=== PATIENT | female | born 1950 | race Caucasian/White ===

== ENCOUNTER 2016-08-02 10:44 | Emergency (ER) | payer OTHER ==
[~2016-08-02] VITALS: Ht 160 cm; Wt 101.5 kg
[~2016-08-02 10:44] MED LIST: ADVIN25/60 INH; ALBUAER INH; AMOX875T PO; ASCA500 PO; B-CO1CAP3 PO; CALC-354 PO; CHOLTAB9 PO; DIPH-437 PO; FLNIN NAE; GLUCOSAMINE CHOND PO; HYDR-5688 PO; LEVO5TAB2 PO; LSX20 PO; MOME0.1C33 TOP; OMG3 PO; RTNACR2515 TOP; SNG10 PO; VITA400C15 PO; [UNRECOGNIZED DRUG - CODE] PO; [UNRECOGNIZED DRUG - CODE] TOP
[2016-08-02 10:47] VITALS: TEMP 36.6; Ht 160 cm; Wt 101.5 kg
[2016-08-02] MEDS ORDERED: GLUCTAB18 PO (11:23)
[2016-08-02] MEDS ORDERED: NAPR220T PO (11:23)
[2016-08-02] MEDS ORDERED: VITA1TAB4 PO (11:23)
[2016-08-02] MEDS ORDERED: ADVIN50/60 INH (11:23)
--- NOTE | 2016-08-02 11:30 | EMERGENCY ROOM VISIT NOTE ---
History Report prepared by Erasmo: Evelyn Kuo Under the Supervision of: Dr. Leonarda Adair D.O. First contact with patient: 11:02 Chief Complaint: CARDIAC ASSESSMENT Stated Complaint: SOB, LEFT BREAST/SHOULDER PAIN, NAUSEA Nursing Triage Summary: reports L side cp that started last night around 2300 with some intermittent nausea and radiation to L shoulder and back, also hx of asthma denies use of inhaler or steroid recently , reports ANGUIANO at this time History of Present Illness The patient is a 66 year old female who presents to the Emergency Room with complaints of constant left sided chest pain beginning at 11pm last night. The patient notes the pain begins at her left breast and radiates to her left shoulder and down into her back. She is experiencing shortness of breath, nausea and a headache. The patient has a history of asthma but states that these symptoms as different from her usual exacerbation of asthma. She has not taken her inhaler steroids this morning. The patient denies cough or history of cardiac events. She has a history of PE in back of right knee. Source of History: patient Onset: 11pm last night Position: chest (left) Timing: constant Associated Symptoms: + SOB, + headache, + nausea Review of Systems See HPI for pertinent positives & negatives. A total of 10 systems reviewed and were otherwise negative. Past Medical & Surgical Medical Problems: (1) Asthma Family History Cancer Diabetes mellitus FHx: gallbladder disease Heart disease Hypertension Social History Smoking Status: Never Smoker Alcohol Use: occasionally Marital Status: Housing Status: lives with family Occupation Status: employed Current/Historical Medications Scheduled Acetaminophen/Diphenhydramine (Tylenol Pm), 1 TAB PO HS B-Complex Vitamins (B Complex), 1 CAP PO DAILY Calcium Carbonate-Cholecalcife (Caltrate 600+D), 1 TAB PO DAILY Fluticasone Prop/Salmeterol (Advair Diskus 500/50 60 Dose), 1 PUFF INH BID Glucosamine-Chondroitin (Osteo Bi-Flex Regular Str), 1 TAB PO DAILY Levocetirizine Dihydrochloride (Xyzal), 1 TAB PO QPM Montelukast Sod (Montelukast Sodium), 10 MG PO DAILY Naproxen Sodium (Aleve), 220 MG PO DIRECTED Vitamin E (Vitamin E), 800 UNITS PO DAILY Scheduled PRN Furosemide (Furosemide), 20 MG PO DAILY PRN for FLUID Allergies Coded Allergies: Ibuprofen (Unverified Allergy, Intermediate, SWELLING HIVES, 03/23/15) Codeine (Unverified Allergy, Mild, NAUSEA, 03/23/15) Aspartame (Unverified Allergy, Unknown, SWELLING HIVES, 03/23/15) Guaifenesin (Unverified Allergy, Unknown, SWELLING HIVES, 03/23/15) Morphine (Unverified Allergy, Unknown, VOMITING, 03/23/15) Tramadol (Verified Adverse Reaction, Mild, ULTRACET-VOMITING, 03/23/15) Lactose (Verified Adverse Reaction, Unknown, INTOLERANCE, DAIRY PRODUCTS, 03/23/15) Physical Exam Vital Signs Date Time Temp Pulse Resp B/P Pulse Ox O2 Delivery O2 Flow Rate FiO2 08/02/16 14:34 78 18 160/87 99 08/02/16 13:40 72 08/02/16 12:30 77 18 140/107 96 Room Air 08/02/16 10:56 83 08/02/16 10:47 36.6 90 22 165/97 98 Room Air Physical Exam General: Obese female who appears uncomfortable. HEENT: Head - normocephalic and atraumatic Pupils are equal, round, and reactive to light. Extraocular eye muscles are intact, and sclera are anicteric. Nose - moist nasal mucosa without discharge. Mouth - moist buccal mucosa. Oropharynx is nonerythematous and there is no tonsillar exudate or edema noted. Neck: Supple; no JVD, nuchal rigidity, cervical lymphadenopathy, or auscultated bruits. Heart: Regular rate and rhythm. There is a normal S1 and S2 with no murmurs, clicks, or gallops appreciated. Lungs: Diminished breath sounds in all lung longoria, no wheezing. Chest: No skin lesions noted. Abdomen: Soft, completely nontender, nondistended, with good bowel sounds. There are no palpable pulsatile masses or hepatosplenomegaly. There is no guarding, rigidity, or rebound noted. Back: No skin lesions noted. Extremities: No evidence of cyanosis, clubbing, or edema. There are easily palpable peripheral pulses. Skin: warm and dry with good turgor and no rashes. Medical Decision & Procedures ER Provider Diagnostic Interpretation: Radiology results as stated below per my review and the radiologist's interpretation: CHEST 2 VIEWS ROUTINE CLINICAL HISTORY: Left-sided chest pain and shortness of breath. COMPARISON STUDY: Chest radiograph 12/22/2015. FINDINGS: Lung volumes are normal. There are cholecystectomy clips. Borderline cardiomegaly is unchanged. There is no evidence of pulmonary edema. There is no consolidation. There is no pneumothorax or pleural effusion. IMPRESSION: No acute cardiopulmonary findings. Electronically signed by: Sarthak Liao M.D. 08/02/2016 12:27 PM Dictated Date/Time: 08/02/2016 12:[address] ANGIOGRAPHY OF THE CHEST, PULMONARY EMBOLUS PROTOCOL CLINICAL HISTORY: Left sided chest pain and shortness of breath. COMPARISON STUDY: Chest radiograph March 23, 2015. TECHNIQUE: Following IV administration of 81 mL of Optiray-320, helical axial images of the chest were obtained utilizing the pulmonary embolus protocol. Maximal intensity projections and sagittal and coronal reformats were viewed on an independent 3D workstation. IV contrast was administered without complication. CT DOSE: 548.78 mGy.cm FINDINGS: No pulmonary emboli are identified. The size of the heart is at the upper limits of normal. There is no significant contrast within the thoracic aorta. The caliber of the thoracic aorta is normal. There is no pericardial effusion. No pneumothorax or pleural effusion is present. There is no consolidation to suggest pneumonia. The bony thorax and upper abdomen are unremarkable. The gallbladder is surgically absent. IMPRESSION: 1. No pulmonary emboli identified. 2. No acute intrathoracic findings. Electronically signed by: Sarthak Liao M.D. 08/02/2016 1:26 PM Dictated Date/Time: 08/02/2016 1:10 PM Laboratory Results 08/02/16 11:10 Red Blood Count 4.92, Mean Corpuscular Volume 91.3, Mean Corpuscular Hemoglobin 29.7, Mean Corpuscular Hemoglobin Concent 32.5, Mean Platelet Volume 9.6, Neutrophils (%) (Auto) 45.5, Lymphocytes (%) (Auto) 36.1, Monocytes (%) (Auto) 8.3, Eosinophils (%) (Auto) 8.0, Basophils (%) (Auto) 1.9, Neutrophils # (Auto) 2.68, Lymphocytes # (Auto) 2.12, Monocytes # (Auto) 0.49, Eosinophils # (Auto) 0.47, Basophils # (Auto) 0.11 08/02/16 11:10 Test 08/02/16 11:10 White Blood Count 5.88 K/uL (4.8-10.8) Red Blood Count 4.92 M/uL (4.2-5.4) Hemoglobin 14.6 g/dL (12.0-16.0) Hematocrit 44.9 % (37-47) Mean Corpuscular Volume 91.3 fL (80-100) Mean Corpuscular Hemoglobin 29.7 pg (25-34) Mean Corpuscular Hemoglobin Concent 32.5 g/dl (32-36) Platelet Count 325 K/uL (130-400) Mean Platelet Volume 9.6 fL (7.4-10.4) Neutrophils (%) (Auto) 45.5 % Lymphocytes (%) (Auto) 36.1 % Monocytes (%) (Auto) 8.3 % Eosinophils (%) (Auto) 8.0 % Basophils (%) (Auto) 1.9 % Neutrophils # (Auto) 2.68 K/uL (1.4-6.5) Lymphocytes # (Auto) 2.12 K/uL (1.2-3.4) Monocytes # (Auto) 0.49 K/uL (0.11-0.59) Eosinophils # (Auto) 0.47 K/uL (0-0.5) Basophils # (Auto) 0.11 K/uL (0-0.2) RDW Standard Deviation 42.4 fL (36.4-46.3) RDW Coefficient of Variation 12.7 % (11.5-14.5) Immature Granulocyte % (Auto) 0.2 % Immature Granulocyte # (Auto) 0.01 K/uL (0.00-0.02) D-Dimer 560 ug/L FEU (0-500) Anion Gap 7.0 mmol/L (3-11) Est Creatinine Clear Calc Drug Dose 71.8 ml/min Estimated GFR () 78.3 Estimated GFR (Non- 67.6 BUN/Creatinine Ratio 11.8 (10-20) Calcium Level 8.8 mg/dl (8.5-10.1) Total Bilirubin 0.4 mg/dl (0.2-1) Aspartate Amino Transf (AST/SGOT) 20 U/L (15-37) Alanine Aminotransferase (ALT/SGPT) 40 U/L (12-78) Alkaline Phosphatase 78 U/L (45-117) Total Creatine Kinase 95 U/L (26-192) Creatine Kinase MB 1.5 ng/ml (0.5-3.6) Creatine Kinase MB Ratio 1.6 (0-3.0) Troponin I < 0.015 ng/ml (0-0.045) Pro-B-Type Natriuretic Peptide 6 pg/ml (0-900) Total Protein 7.7 gm/dl (6.4-8.2) Albumin 4.0 gm/dl (3.4-5.0) Globulin 3.7 gm/dl (2.5-4.0) Albumin/Globulin Ratio 1.1 (0.9-2) Laboratory results per my review. Medications Administered Medications (Trade) Dose Ordered Sig/Radha Route Start Time Stop Time Status Last Admin Dose Admin Acetaminophen (Tylenol Tab) 1,000 mg NOW STAT PO 08/02/16 12:23 08/02/16 12:24 DC 08/02/16 12:23 1,000 MG Procedure Tylenol Tab 1,000 mg PO. ECG Indication: SOB/dyspnea Rate (beats per minute): 83 Rhythm: normal sinus Findings: no acute ischemic change, no ectopy ED Course 1115: Past medical records reviewed. The patient was evaluated in room C10. A complete history and physical exam was performed. An IV lock was initiated and labs were drawn as above. A twelve-lead EKG was obtained as described above. 1221: The patient does not want Dilaudid so she can drive home. She is requesting Tylenol. The patient had chest x-ray which was unremarkable. 1223: Tylenol Tab 1,000 mg PO. 1255: The Tylenol helped improve her chest pain. She had an elevated d-dimer with a previous history of DVT. She is going to CT. 1432: The patient is feeling better and would like to go home. 1435: Upon reevaluation, the patient is hemodynamically stable. I discussed findings and results with her. She verbalized agreement of the treatment plan. She was discharged home. Medical Decision The patient is a 66 year old female who presents to the ED with chest pain. Differential diagnosis includes PE, pneumonia, asthma exacerbation, costochondritis, pleurisy. Lab findings include: no leukocytosis, stable H&H, normal glucose and renal function, negative cardiac enzymes and LFT, elevate D Dimer 560. The patient has had some discomfort in the left chest radiating into the left axilla and left shoulder since last night. She has a normal-appearing EKG and negative cardiac enzymes. The d-dimer was elevated. CT scan of the chest revealed no evidence of PE. The patient was given Tylenol here in the emergency department and had some relief of the discomfort. I've suggested that she continue to use that for her discomfort. She should limit strenuous activity over the next couple of days. I've asked her to follow -up with her PCP if the symptoms persist. She can return here to the emergency department if symptoms worsen. Impression Primary Impression: Left-sided chest wall pain Scribe Attestation The scribe's documentation has been prepared under my direction and personally reviewed by me in its entirety. I confirm that the note above accurately reflects all work, treatment, procedures, and medical decision making performed by me. Departure Information Dispostion Home / Self-Care Referrals Sinan Russo M.D. (PCP) Forms IMPORTANT VISIT INFORMATION Patient Instructions ED Chest Pain Atypical Unkn Cause, My [facility] Additional Instructions Rest. tylenol - 1 gram every 8 hours for pain Follow up with PCP if pain persists Return to the ER if symptoms worsen.
[2016-08-02 11:31] LABS: BASO % 1.9 %; BASO ABS # 0.11 K/uL (0-0.2); COMPLETE YES; HEMATOCRIT 44.9 % (37-47); IG% 0.2 %; LYMPH % 36.1 %; LYMPH ABS # 2.12 K/uL (1.2-3.4); MEAN CELL VOLUME 91.3 fL (80-100); MEAN CORPUSCULAR HEMOGLOBIN 29.7 pg (25-34); MEAN CORPUSCULAR HGB CONC 32.5 g/dl (32-36); MEAN PLATELET VOLUME 9.6 fL (7.4-10.4); MONO % 8.3 %; NEUT % 45.5 %; PLATELET COUNT 325 K/uL (130-400); RED BLOOD COUNT 4.92 M/uL (4.2-5.4); WHITE BLOOD COUNT 5.88 K/uL (4.8-10.8)
[2016-08-02 11:55] LABS: ALT/SGPT 40 U/L (12-78); AST/SGOT 20 U/L (15-37); BLOOD UREA NITROGEN 11 mg/dl (7-18); BUN/CREATININE RATIO 11.8 (10-20); CALCIUM 8.8 mg/dl (8.5-10.1); CARBON DIOXIDE 29 mmol/L (21-32); CHLORIDE 106 mmol/L (98-107); GLUCOSE 98 mg/dl (70-99); POTASSIUM 4.1 mmol/L (3.5-5.1); SODIUM 142 mmol/L (136-145)
[2016-08-02 12:00] LABS: ALB/GLOB RATIO 1.1 (0.9-2); ALKALINE PHOSPHATASE 78 U/L (45-117); CKMB/CK RATIO 1.6 (0-3.0)
[2016-08-02] MEDS ORDERED: HYDROmorphone INJ 1 MG/ML SYR IV STA (12:12)
[2016-08-02] MEDS ORDERED: ACETAMINOPHEN 500 MG TAB PO STA (12:23)
--- NOTE | 2016-08-02 12:28 | DIAGNOSTIC IMAGING REPORT ---
CHEST 2 VIEWS ROUTINE CLINICAL HISTORY: Left-sided chest pain and shortness of breath. COMPARISON STUDY: Chest radiograph 12/22/2015. FINDINGS: Lung volumes are normal. There are cholecystectomy clips. Borderline cardiomegaly is unchanged. There is no evidence of pulmonary edema. There is no consolidation. There is no pneumothorax or pleural effusion. IMPRESSION: No acute cardiopulmonary findings. Electronically signed by: Sarthak Liao M.D. 08/02/2016 12:27 PM Dictated Date/Time: 08/02/2016 12:26 PM
[2016-08-02] MEDS ORDERED: OPTIRAY 320 IV PRN (13:00)
--- NOTE | 2016-08-02 13:28 | DIAGNOSTIC IMAGING REPORT ---
CT ANGIOGRAPHY OF THE CHEST, PULMONARY EMBOLUS PROTOCOL CLINICAL HISTORY: Left sided chest pain and shortness of breath. COMPARISON STUDY: Chest radiograph March 23, 2015. TECHNIQUE: Following IV administration of 81 mL of Optiray-320, helical axial images of the chest were obtained utilizing the pulmonary embolus protocol. Maximal intensity projections and sagittal and coronal reformats were viewed on an independent 3D workstation. IV contrast was administered without complication. CT DOSE: 548.78 mGy.cm FINDINGS: No pulmonary emboli are identified. The size of the heart is at the upper limits of normal. There is no significant contrast within the thoracic aorta. The caliber of the thoracic aorta is normal. There is no pericardial effusion. No pneumothorax or pleural effusion is present. There is no consolidation to suggest pneumonia. The bony thorax and upper abdomen are unremarkable. The gallbladder is surgically absent. IMPRESSION: 1. No pulmonary emboli identified. 2. No acute intrathoracic findings. Electronically signed by: Sarthak Liao M.D. 08/02/2016 1:26 PM Dictated Date/Time: 08/02/2016 1:10 PM
[2016-08-02 14:34] VITALS: BP 160/87; PULSE 78; O2SAT 99
== END 2016-08-02 14:35 | disposition home or self-care (01) ==
LOC: C.EDB 10:45 → C.EDC 14:35
DX: R07.89 Other chest pain (principal); R06.02 Shortness of breath; R11.0 Nausea; R51 Headache; J45.909 Unspecified asthma, uncomplicated; Z86.718 Personal history of other venous thrombosis and embolism; Z83.3 Family history of diabetes mellitus; Z82.49 Family history of ischemic heart disease and other diseases of the circulatory system; E66.9 Obesity, unspecified

== ENCOUNTER → 2016-10-01 | Outpatient (CLI) | payer OTHER ==
[~2016-10-01] MED LIST changes: -ADVIN25/60 INH; +ADVIN50/60 INH; -ALBUAER INH; -AMOX875T PO; -ASCA500 PO; -CHOLTAB9 PO; -FLNIN NAE; -GLUCOSAMINE CHOND PO; +GLUCTAB18 PO; -HYDR-5688 PO; +LEVO-371 PO; -LEVO5TAB2 PO; -MOME0.1C33 TOP; +NAPR220T PO; -OMG3 PO; -RTNACR2515 TOP; +VITA1TAB4 PO; -VITA400C15 PO; -[UNRECOGNIZED DRUG - CODE] PO; -[UNRECOGNIZED DRUG - CODE] TOP
--- NOTE | 2016-10-01 12:18 | MAMMOGRAPHY REPORT ---
BILATERAL DIGITAL SCREENING MAMMOGRAM TOMOSYNTHESIS WITH CAD: 10/01/2016 CLINICAL HISTORY: Routine screening. Patient has no complaints. TECHNIQUE: Breast tomosynthesis in addition to standard 2D mammography was performed. Current study was also evaluated with a Computer Aided Detection (CAD) system. COMPARISON: Comparison is made to exams dated: 09/30/2015 mammogram, 09/19/2014 mammogram, 09/18/2013 jose g mogram, 09/12/2012 mammogram, 09/02/2011 mammogram, and 08/28/2010 mammogram - [facility] er. BREAST COMPOSITION: The tissue of both breasts is almost entirely fatty. FINDINGS: The parenchymal pattern is unchanged. No developing mass, architectural distortion or clus ter of suspicious microcalcifications is seen in either breast. IMPRESSION: ACR BI-RADS CATEGORY 2: BENIGN There is no mammographic evidence of malignancy. A 1 year screening mammogram is recommended. The pa tient will receive written notification of the results. Approximately 10% of breast cancers are not detected with mammography. A negative mammographic report should not delay biopsy if a clinically suggestive mass is present. Yokasta Zheng M.D. ay/:10/01/2016 12:06:33 Hauling Contractor: Sissy ZACARIAS(Larissa)(M), [facility] letter sent: Normal 1/2 BI-RADS Code: ACR BI-RADS Category 2: Benign
== END | disposition home or self-care (01) ==
LOC: C.MAMM 07:10
PROVIDERS: ATTEND Family Medicine
DX: Z12.31 Encounter for screening mammogram for malignant neoplasm of breast (principal)

== ENCOUNTER 2017-06-30 08:04 | Inpatient (IN) | payer OTHER ==
[2017-06-16 10:41] VITALS: Ht 157.5 cm; Wt 102.0 kg
--- NOTE | 2017-06-16 11:22 | PAT Medication Instructions ---
Service Date Jun 16, 2017. Current Home Medication List Acetaminophen (Tylenol), 1 TAB PO UD PRN for Pain Albuterol Hfa (Ventolin Hfa), 2 PUFFS INH UD PRN for ASTHMA B-Complex Vitamins (B Complex), 1 CAP PO QAM Fluticasone Prop/Salmeterol (Advair Diskus 500/50 60 Dose), 1 PUFF INH BID Fluticasone Propionate (Nasal) (Flonase Allergy Relief), 1 DOSE JEN UD Furosemide (Furosemide), 20 MG PO DAILY PRN for FLUID Glucosamine-Chondroitin (Osteo Bi-Flex Regular Str), 1 TAB PO UD Hyoscyamine Sulfate (Levsin), 0.125 MG PO UD PRN for PRN Ibuprofen (Advil), 200 MG PO UD PRN for Pain Iodoquinol-Hc (Dermazene), Unknown Dose TOP UD Levocetirizine Dihydrochloride (Xyzal), 1 TAB PO QPM Meclizine Hcl (Meclizine Hcl), 1 TAB PO UD PRN for DIZZINESS Mometasone Furoate (Elocon), 1 APPLN TOP UD PRN for PRN Montelukast Sod (Montelukast Sodium), 10 MG PO QAM Naproxen Sodium (Aleve), 220 MG PO DIRECTED PRN for Pain Oxybutynin Chloride (Ditropan), 1 TAB PO UD PRN for prn Polymyxin/Trimethoprim Oph (Polytrim Oph), 1 DROP OP UD PRN for ALLERGIES Prednisone (Prednisone), Unknown Dose PO UD Tretinoin (Tretinoin), 1 APPLN TOP UD PRN for PRN Vitamin E (Vitamin E), 800 UNITS PO QAM Medication Instructions For Your Scheduled Surgery -Contact your surgeon for instructions for: Ibuprofen (Advil), 200 MG PO UD PRN for Pain Naproxen Sodium (Aleve), 220 MG PO DIRECTED PRN for Pain -Continue as directed: Prednisone (Prednisone), Unknown Dose PO UD - Hold the following medications 2 weeks prior to surgery: Glucosamine-Chondroitin (Osteo Bi-Flex Regular Str), 1 TAB PO UD Vitamin E (Vitamin E), 800 UNITS PO QAM - Hold the following medications 24 hours prior to surgery: Furosemide (Furosemide), 20 MG PO DAILY PRN for FLUID Iodoquinol-Hc (Dermazene), Unknown Dose TOP UD Mometasone Furoate (Elocon), 1 APPLN TOP UD PRN for PRN Tretinoin (Tretinoin), 1 APPLN TOP UD PRN for PRN - Hold the following medications the morning of surgery: B-Complex Vitamins (B Complex), 1 CAP PO QAM Hyoscyamine Sulfate (Levsin), 0.125 MG PO UD PRN for PRN Oxybutynin Chloride (Ditropan), 1 TAB PO UD PRN for prn - Take the following medications the morning of surgery with a sip of water: Acetaminophen (Tylenol), 1 TAB PO UD PRN for Pain (if needed, can be taken up to four hours before surgery) Albuterol Hfa (Ventolin Hfa), 2 PUFFS INH UD PRN for ASTHMA (if needed, and bring it with you to the hospital) Fluticasone Prop/Salmeterol (Advair Diskus 500/50 60 Dose), 1 PUFF INH BID Fluticasone Propionate (Nasal) (Flonase Allergy Relief), 1 DOSE JEN UD Meclizine Hcl (Meclizine Hcl), 1 TAB PO UD PRN for DIZZINESS (if needed) Montelukast Sod (Montelukast Sodium), 10 MG PO QAM Polymyxin/Trimethoprim Oph (Polytrim Oph), 1 DROP OP UD PRN for ALLERGIES (if needed) - Take the following medications as scheduled the night before surgery: Acetaminophen (Tylenol), 1 TAB PO UD PRN for Pain (if needed) Albuterol Hfa (Ventolin Hfa), 2 PUFFS INH UD PRN for ASTHMA (if needed) Fluticasone Prop/Salmeterol (Advair Diskus 500/50 60 Dose), 1 PUFF INH BID Fluticasone Propionate (Nasal) (Flonase Allergy Relief), 1 DOSE JEN UD Hyoscyamine Sulfate (Levsin), 0.125 MG PO UD PRN (if needed) Levocetirizine Dihydrochloride (Xyzal), 1 TAB PO QPM Meclizine Hcl (Meclizine Hcl), 1 TAB PO UD PRN for DIZZINESS (if needed) Oxybutynin Chloride (Ditropan), 1 TAB PO UD PRN (if needed) Polymyxin/Trimethoprim Oph (Polytrim Oph), 1 DROP OP UD PRN for ALLERGIES (if needed) If you have any questions please call us at [phone] or [phone] or [phone]
[2017-06-16 13:20] LABS: BASO % 1.5 %; EOS % 4.8 %; EOS ABS # 0.33 K/uL (0-0.5); HEMATOCRIT 43.8 % (37-47); HEMOGLOBIN 14.4 g/dL (12.0-16.0); IG# 0.02 K/uL (0.00-0.02); LYMPH % 31.1 %; LYMPH ABS # 2.13 K/uL (1.2-3.4); MEAN CELL VOLUME 90.7 fL (80-100); MEAN CORPUSCULAR HEMOGLOBIN 29.8 pg (25-34); MEAN CORPUSCULAR HGB CONC 32.9 g/dl (32-36); MEAN PLATELET VOLUME 10.1 fL (7.4-10.4); MONO % 7.2 %; MONO ABS # 0.49 K/uL (0.11-0.59); NEUT % 55.1 %; NEUT ABS # 3.77 K/uL (1.4-6.5); PLATELET COUNT 297 K/uL (130-400); RED CELL DISTRIBUTION WIDTH CV 13.4 % (11.5-14.5); RED CELL DISTRIBUTION WIDTH SD 44.3 fL (36.4-46.3); WHITE BLOOD COUNT 6.84 K/uL (4.8-10.8)
[2017-06-16 13:28] LABS: PTT PATIENT 25.8 SECONDS (21.0-31.0)
[2017-06-16 14:03] LABS: HEMOGLOBIN A1C 6.1 % (4.5-5.6)
[2017-06-16 14:42] LABS: ALBUMIN 3.7 gm/dl (3.4-5.0); CALCIUM 9.4 mg/dl (8.5-10.1); CREATININE 0.95 mg/dl (0.60-1.20); POTASSIUM 4.2 mmol/L (3.5-5.1)
--- NOTE | 2017-06-23 14:57 | HISTORY & PHYSICAL EXAMINATION ---
DATE OF ADMISSION: 06/30/2017 CHIEF COMPLAINT: Left knee pain. HISTORY OF PRESENT ILLNESS: Ms. Moore is a 67-year-old female with a 3-4 year history of left knee pain. The patient rates her pain 8-9/10. She has pain with her daily activities. She has limited standing and walking tolerance. Pain is worse with weightbearing. The patient has had injections, NSAIDS and PT. She has failed conservative treatment and is scheduled for a left knee replacement. PAST MEDICAL HISTORY: History of DVT with , asthma. She denies diabetes or heart disease. PAST SURGICAL HISTORY: Right knee arthroscopy, left rotator cuff repair and cholecystectomy. SOCIAL HISTORY: The patient drinks 1-2 alcoholic drinks per month. She denies tobacco use. She lives in a single tarik home. She is and retired. FAMILY HISTORY: Positive for DVT in her mother. MEDICATIONS: Advair HFA 2 puffs b.i.d., oxybutynin 5 mg b.i.d., ProAir 90 mcg p.r.n., montelukast 10 mg daily, levocetirizine 5 mg, tretinoin 0.05% topical cream, Advil p.r.n., Aleve p.r.n., Tylenol p.r.n. ALLERGIES: OXYCODONE CAUSES NAUSEA AND VOMITING. REVIEW OF SYSTEMS: See HPI. Ten other systems reviewed, all negative. PHYSICAL EXAMINATION: VITAL SIGNS: Height 5 foot 2 inches, weight 224 pounds. BMI 41. GENERAL: This is a well developed, well nourished female who is alert and oriented x3. Mood and affect are appropriate. HEENT: Normocephalic, atraumatic. Mucous membranes are moist and intact. NECK: Supple without lymphadenopathy. HEART: Regular rate and rhythm without murmurs, rubs or gallops. LUNGS: Clear to auscultation without wheezes or rhonchi. ABDOMEN: Soft and nontender. Bowel sounds are equal and active. EXTREMITIES: No ecchymosis, redness or warmth. She has varus deformity. Range of motion is from 0-115 degrees with +1 laxity. She is neurovascularly intact with +5/5 strength. X-RAY EXAMINATION: AP and lateral views show joint space narrowing and osteophyte formation. IMPRESSION: Degenerative joint disease, left knee. PLAN: The patient will be admitted for a left total knee arthroplasty. We will plan on [facility] for home physical therapy upon discharge. 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 She is unsure, which coag factor is positive. She should have Xarelto for DVT prophylaxis. THE PATIENT IS ALSO ALLERGIC TO OXYCODONE and should have a Saxon prescription upon discharge.
[2017-06-30] VITALS (8 sets, daily range): BP systolic 109–164; BP diastolic 67–91; PULSE 66–90; TEMP 36.5–37.3; O2SAT 93–98
[~2017-06-30] VITALS: Ht 157.5 cm; Wt 102.0 kg
[2017-06-30] MEDS: TRANEXAMIC ACID INJ 1,000 MG x 1 Bag Preop IV SCH ×4 (06:10→10:27)
[~2017-06-30 08:04] MED LIST changes: +ACET-1256 PO; +ACETAMINOPHEN 500 MG TAB PO SCH; -CALC-354 PO; +CEFAZOLIN 2000MG IV PUSH 15 ML IV SCH; +CeleBREX 200 MG CAP PO SCH; +DEXAMETHASONE 4 MG TAB PO SCH; -DIPH-437 PO; +DTR/5 PO; +FAMOTIDINE 20 MG TAB PO SCH; +FLUT0.15 NAE; +GABAPENTIN 300 MG CAP PO SCH; +HYOS1TAB PO; +IBUP-1050 PO; +LACTATED RINGER'S 1000ML 1,000 ML IV SCH; +LACTATED RINGER'S 1000ML 500 ML IV SCH; -LEVO-371 PO; +LEVO5TAB2 PO; +MECL1TAB42 PO; +METOCLOPRAMIDE HCL 10 MG TAB PO SCH; +MOME0.1O TOP; +POLYSOL50 OP; +POVIDONE-IODINE OP SOLN 30 ML BTL ONE; +PRED10TA PO; +ROPIVACAINE 5MG/ML 30 ML 150 MG, BUPIVACAINE 0.5% MPF INJ 30 ML, EpINEphrine HCL INJ 0.... INFIL SCH; +TRANEXAMIC ACID INJ 1,000 MG x 1 Bag Intra-Op IV SCH; +TRET-55 TOP; +VNTHFA/IN INH; +[UNRECOGNIZED DRUG - CODE] TOP
--- NOTE | 2017-06-30 08:24 | History & Physical Bridge Note ---
H&P Re-Evaluation Bridge Note: I have examined the patient, reviewed the History & Physical and in the interval since the performance of the History & Physical I have noted the following changes of clinical significance: No changes noted
[2017-06-30] MEDS ORDERED: BUPIVACAINE 0.5 % 5 MG/1 ML PF 10ML VIAL ONE (08:28)
[2017-06-30] MEDS ORDERED: BUPIVACAINE 0.25% 30 ML VIAL ONE (08:29)
[2017-06-30] MEDS ORDERED: MIDAZOLAM HCL 1 MG/ML 2ML VIAL ONE (09:37)
[2017-06-30] MEDS ORDERED: ORTHO JOINT ANESTHETIC ONE (10:02)
[2017-06-30] MEDS ORDERED: BACITRACIN 50000 UNIT VIAL ONE (10:03)
[2017-06-30] MEDS ORDERED: EpHEDrine SULFATE INJ 50 MG/ML AMP IV PRN (11:00)
[2017-06-30] MEDS ORDERED: ATROPINE SULFATE 0.1 MG/ML 5ML SYR IV PRN (11:00)
[2017-06-30] MEDS ORDERED: KETAMINE HCL INJ 50 MG/ML 10 ML VIAL ONE (11:00)
[2017-06-30] MEDS ORDERED: LIDOCAINE HCL 2% 2 ML VIAL (20MG/ML) ONE (11:42)
[2017-06-30] MEDS ORDERED: PROPOFOL IV EMULSION 10 MG/ML 20 ML VIAL IV ONE (11:42)
[2017-06-30] MEDS ORDERED: ALBUTEROL HFA INHALER 8.5 GM INH ONE (11:42)
--- NOTE | 2017-06-30 11:47 | [facility] Post Operative Brief Note ---
Immediate Operative Summary Operative Date Jun 30, 2017. Pre-Operative Diagnosis Left Knee Degenerative Joint Disease Post-Operative Diagnosis Left Knee Degenerative Joint Disease Procedure(s) Performed Left Total Knee Arthroplasty Surgeon Dr Szymanski Spout Liner Surgeon(s) Donte Burger PA-C Estimated Blood Loss 10cc Findings Consistent with Post-Op Diagnosis Specimens As Per Surgeon A. Left Knee Bone and Tissue Anesthesia Type MAC Spinal Regional Complication(s) none Disposition Accompanied Pt To Recover: no Disposition: Recovery Room / PACU
[2017-06-30] MEDS ORDERED: CEFAZOLIN IV 2,000 MG in DEXTROSE 5% 50ML 50 ML IV SCH (12:30)
[2017-06-30] MEDS ORDERED: MAGNESIUM HYDROXIDE SUSP 30 ML UDC PO PRN (12:30)
[2017-06-30] MEDS ORDERED: ALUMINUM/MAGNESIUM/SIMETH (MAALOX MAX) 30 ML UDC PO PRN (12:30)
[2017-06-30] MEDS ORDERED: FLUTICASONE PROPIONATE NA SPR 16 GM BTL NAE PRN (12:30)
[2017-06-30] MEDS ORDERED: OXYBUTYNIN CHLORIDE 5 MG TAB PO PRN (12:30)
[2017-06-30] MEDS ORDERED: ONDANSETRON INJ 2 MG/ML 2 ML VIAL IV PRN (12:30)
[2017-06-30] MEDS ORDERED: ALBUTEROL HFA 8 GM INHALER INH PRN (12:30)
[2017-06-30] MEDS ORDERED: FUROSEMIDE 20 MG TAB PO PRN (12:30)
[2017-06-30] MEDS ORDERED: BISACODYL 10 MG SUPP PR PRN (12:30)
[2017-06-30] MEDS ORDERED: HYDROmorphone INJ 0.5 MG/0.5 ML SYR IV PRN (12:30)
--- NOTE | 2017-06-30 12:51 | OPERATIVE REPORT ---
DATE OF OPERATION: 06/30/2017 PREOPERATIVE DIAGNOSIS: Osteoarthritis, left knee. POSTOPERATIVE DIAGNOSIS: Osteoarthritis, left knee. PROCEDURE: Left total knee arthroplasty. SURGEON: Dr. Szymanski. INCIDENT ANALYST: LUZ MARINA Batista ANESTHESIA: Spinal. COMPLICATIONS: None. IMPLANTS USED: Femoral size 3, tibia size 2, tibial poly 13, patella size 33. DISPOSITION: Recovery room, stable. OPERATION AND FINDINGS: Following induction of spinal anesthesia, the patient's left leg was prepped and draped in the usual sterile manner. Limb was exsanguinated with an Esmarch bandage and tourniquet was inflated to 350 mmHg. A longitudinal incision was made anteriorly. Subcutaneous tissue was sharply dissected. Electrocautery was used for hemostasis. Prepatellar bursa was incised and median parapatellar incision was performed. Patella was everted and the knee was flexed. Fat pad was removed to aid in visualization and the anterior and posterior cruciate ligaments were removed. The medial face of the tibia was cleared of soft tissue first with a Bovie and a Navarro elevator. This tissue was retracted posteriorly using a blunt Hohmann. A Melendez retractor was used to expose the synovium above on the anterior aspect of the femur and this was removed down to bone. The PSI guide was placed on the distal femur and two pins were placed anteriorly and kept in position and two additional pins were placed distally and removed. The distal femoral cutting block was placed in position and the distal femoral cut was used in the +0 setting. Next, the cutting block was removed and the femoral 3 block was placed in the distal end of the femur. Care was taken to ensure appropriate external rotation and feeler gauge was used to ensure no notching would occur. The femoral block was centered on the distal femur and in the medial and lateral direction and was fixed using two bone screws. The gold pins were then removed. The oscillating saw was used to create the bone cuts and the distal femoral cutting block was removed and the reciprocating saw was used to further trim the femoral cuts as well as a deep in the area for the trochlear groove. Next, posterior condyle remnants were removed. Following this, a meniscal clamp and knife were utilized to remove the anterior portion of both medial and lateral meniscus. The proximal tibia PSI guide was placed into position and the proximal tibial cutting guide was screwed into position. The extra medullary alignment guide was utilized to ensure appropriate alignment. The proximal tibia was cut and the proximal tibial cutting block was removed and this bone fragment was removed. The appropriate guide was used to perform the notch cut on the distal femur and a lamina human resources compliance manager and a cochlear knife were utilized to finish both medial and lateral meniscectomies to remove any remnants of the posterior or anterior cruciate ligaments. Following this, the distal femoral component was impacted into position and blunt Nicole was used to sublux the tibia anteriorly. The proximal tibia was sized and a 2 tibial tray was chosen as the size to be used. This was put into position and appropriate external rotation and a double check with extramedullary alignment guide was performed. The canal for the tibial stem was prepared first with a 17 mm drill and then the punch and a mallet and the trial tibial poly was placed. A 13 was chosen the size to be used. It was brought to extension and the patella was prepared with the patellar reamer. A 33 component was chosen the size to be used. The trial component was placed and knee was taken through a full range of motion and there was found to be no lateral subluxation of the tibia. No lateral release was required. The trials were all removed. The final components were obtained and assembled. Cement was mixed. The knee was thoroughly irrigated and the ortho mix was injected about the knee joint. The final components were cemented into position. After thoroughly suctioning and drying the bone ends, all excess cement was removed. The knee was held in extension while the cement hardened. The wound was irrigated and closed over a Hemovac drain. #1 Vicryl was used to close the extensor mechanism. Subcutaneous tissues closed using 0 Dexon. Skin was closed with alvin. Sterile dressing of Adaptic, 4 x 4's, sterile Webril, and Russ was applied. The patient tolerated the procedure well. Due to the complex nature of the procedure, the entire surgery was performed with the operational assistance of LUZ MARINA Batista. The foundation assistant, under direct supervision, was involved in the actual performance of all aspects of the surgical procedure including hemostasis, tissue retraction and incision, instrument management, patient positioning, and wound closure. I attest to the content of the Intraoperative Record and any orders documented therein. Any exception s are noted below.
--- NOTE | 2017-06-30 13:22 | Anesthesiology Progress Note ---
Anesthesia Post Op Note Date & Time Jun 30, 2017 at 13:22 Vital Signs Pain Intensity: 0 Vital Signs Past 12 Hours Date Time Temp Pulse Resp B/P (MAP) Pulse Ox O2 Delivery O2 Flow Rate FiO2 06/30/17 13:15 70 16 133/68 97 Nasal Cannula 2 06/30/17 13:05 36.4 72 16 127/82 99 Nasal Cannula 2 06/30/17 12:55 72 16 103/79 96 Nasal Cannula 2 06/30/17 12:45 78 20 126/94 98 Nasal Cannula 2 06/30/17 12:35 72 18 115/59 100 Oxymask 10 06/30/17 12:28 36.1 80 16 138/74 99 Oxymask 10 06/30/17 09:24 37.3 88 20 142/90 Room Air Notes Mental Status: alert / awake / arousable, participated in evaluation Pt Amnestic to Procedure: Yes Nausea / Vomiting: adequately controlled Pain: adequately controlled Airway Patency, RR, SpO2: stable & adequate BP & HR: stable & adequate Hydration State: stable & adequate Neuraxial Anesthesia: was administered, sensory block is resolving Anesthetic Complications: no major complications apparent
--- NOTE | 2017-06-30 13:33 | DIAGNOSTIC IMAGING REPORT ---
L KNEE 1 OR 2 VIEWS ROUTINE CLINICAL HISTORY: 67 years-old Female presenting with AP/LATERAL IN PACU LEFT KNEE. TECHNIQUE: Frontal and crosstable lateral views of the left knee were obtained. COMPARISON: None. FINDINGS: Postsurgical changes of total left knee arthroplasty with patellar resurfacing. Expected intra-articular and soft tissue emphysema. A surgical drain is in place. An old screw track is noted through the tibial plateau. No acute fracture or malalignment. No hardware complication. IMPRESSION: Expected postsurgical appearance status post total left knee arthroplasty with patellar resurfacing. Electronically signed by: Cristino Segura M.D. 06/30/2017 1:32 PM Dictated Date/Time: 06/30/2017 1:31 PM
[2017-06-30] MEDS: D5W AND 1/2NSS + 20MEQ KCL 1,000 ML IV SCH ×2 (14:29→23:31)
[2017-06-30] MEDS ORDERED: NURSING VERBAL MED ORDER ONE (17:00)
[2017-06-30] MEDS: FERROUS GLUCONATE 324 MG TAB PO SCH (18:22)
[2017-06-30] MEDS: HYDROCODONE/ACETAMIN 5/325MG TAB PO PRN ×2 (18:23→23:08)
[2017-06-30] MEDS: CEFAZOLIN IV 2,000 MG in SYRINGE 0 ML IV SCH (18:23)
[2017-06-30] MEDS ORDERED: LEVOCETIRIZINE 5 MG TABLET PO SCH (21:00)
[2017-06-30] MEDS ORDERED: SENNA 8.6 MG TAB PO SCH (21:00)
[2017-06-30] MEDS ORDERED: ASPIRIN 81 MG ECTAB PO SCH (21:00)
[2017-06-30] MEDS: CeleBREX 200 MG CAP PO SCH (21:12)
[2017-06-30] MEDS: FLUTICASONE/SALMETEROL (ADVAIR) 500/50 INH 14 PUFF INH SCH (21:12)
[2017-06-30] MEDS: DOCUSATE SODIUM 100 MG CAP PO SCH (21:13)
[2017-07-01] MEDS: CEFAZOLIN IV 2,000 MG in SYRINGE 0 ML IV SCH (02:38)
[2017-07-01 02:50] VITALS: BP 130/75; PULSE 60; TEMP 36.6; O2SAT 97
[2017-07-01] MEDS: HYDROCODONE/ACETAMIN 5/325MG TAB PO PRN ×2 (02:58→06:51)
[2017-07-01 06:08] LABS: HEMATOCRIT 36.3 % (37-47); MEAN CELL VOLUME 90.3 fL (80-100); MEAN CORPUSCULAR HEMOGLOBIN 29.9 pg (25-34); MEAN CORPUSCULAR HGB CONC 33.1 g/dl (32-36); MEAN PLATELET VOLUME 9.6 fL (7.4-10.4); PLATELET COUNT 274 K/uL (130-400); RED CELL DISTRIBUTION WIDTH CV 13.5 % (11.5-14.5); RED CELL DISTRIBUTION WIDTH SD 44.8 fL (36.4-46.3); WHITE BLOOD COUNT 14.18 K/uL (4.8-10.8)
[2017-07-01 06:54] LABS: CALCIUM 8.3 mg/dl (8.5-10.1); CREATININE 0.98 mg/dl (0.60-1.20)
[2017-07-01 07:15] VITALS: BP 163/83; PULSE 74; TEMP 36.4; O2SAT 98
--- NOTE | 2017-07-01 07:32 | Orthopedic Progress Note ---
Orthopedic Progress Note Date of Service Jul 01, 2017. Subjective Post OP Day: 1 Reports: feeling well Objective N/V intact, dressing C/D/I (Hemovac in place), toes mobile Date Time Temp Pulse Resp B/P (MAP) Pulse Ox O2 Delivery O2 Flow Rate FiO2 07/01/17 02:50 36.6 60 15 130/75 (93) 97 Room Air 06/30/17 23:40 Room Air 06/30/17 22:59 36.7 66 16 109/67 (81) 94 Room Air 06/30/17 20:07 37.2 90 18 129/73 (91) 93 Room Air 06/30/17 16:32 36.8 82 18 142/83 (102) 96 Room Air 06/30/17 16:10 Room Air 06/30/17 15:33 36.8 79 18 147/82 (103) 95 Room Air 06/30/17 14:30 77 18 164/83 (110) 98 Nasal Cannula 2.0 06/30/17 14:00 79 16 154/91 (112) 97 Nasal Cannula 2.0 06/30/17 13:30 98 Nasal Cannula 2.0 06/30/17 13:30 36.5 75 18 131/77 (95) 98 Nasal Cannula 2.0 06/30/17 13:30 36.5 75 18 131/77 (95) 98 Nasal Cannula 2.0 06/30/17 13:30 Nasal Cannula 2.0 06/30/17 13:15 70 16 133/68 97 Nasal Cannula 2 06/30/17 13:05 36.4 72 16 127/82 99 Nasal Cannula 2 06/30/17 12:55 72 16 103/79 96 Nasal Cannula 2 06/30/17 12:45 78 20 126/94 98 Nasal Cannula 2 06/30/17 12:35 72 18 115/59 100 Oxymask 10 06/30/17 12:28 36.1 80 16 138/74 99 Oxymask 10 06/30/17 09:24 37.3 88 20 142/90 Room Air Laboratory Results 24 Hours: Test 07/01/17 05:39 Hematocrit 36.3 % Hemoglobin 12.0 g/dL Assessment & Plan Assessment: 67 yo female stable POD #1 s/p left TKA Plan: 1. Med management 2. DVT prophylaxis- Xarelto, SCDs 3. PT/OT 4. D/C planning- home w/ HH
[2017-07-01] MEDS ORDERED: HYDR-5688 PO (07:39)
[2017-07-01] MEDS ORDERED: XRL10 PO (07:39)
--- NOTE | 2017-07-01 07:40 | Discharge Instructions ---
Discharge Instructions Date of Service Jul 01, 2017. Admission Reason for Admission: Left Knee Osteoarthritis Discharge Discharge Diagnosis / Problem: Left knee arthritis Discharge Goals Goal(s): Decrease discomfort, Improve function Activity Recommendations Activity Limitations: as noted below Weightbearing Status: Left weightbearing (as tolerated) . Instructions / Follow-Up Instructions / Follow-Up ACTIVITY RECOMMENDATIONS: SELF CARE INSTRUCTIONS AFTER TOTAL KNEE REPLACEMENT A. You may need to continue a physical therapy program after discharge from the hospital. There are several options available to you. Your doctor will assist you in selecting the best one for you. 1. An out-patient facility 2 to 3 times a week for therapy or home therapy. 2. Continue working on all exercises taught to you in the hospital. Your goals should be to increase bending of your knee to 90 degrees and beyond and to fully straighten your knee. B. You may progress at your own pace from walking with a walker or crutches to a cane; then to no assistive devices. C. Make walking a part of your daily routine. Be up as much as comfortable with rest periods throughout the day. Rest with leg elevation is very important. Use the ice wrap frequently for the first 3-4 weeks. D. There are no restrictions on activities. 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 E. Wear the long elastic stockings (PABLITO hose) 20 hours a day for 2 weeks after surgery. They can be removed several times a day for laundering and for a bath. F. You may shower, no tub baths until cleared by your doctor. SPECIAL CARE INSTRUCTIONS: VERY IMPORTANT TO READ AND REVIEW A. There are a few signs you need to watch for after you are home. Call [facility] [place] if you notice any of the followin. Increased severe knee pain. Some pain is expected especially when you exercise. 2. Increased swelling in your leg or knee; pain or swelling of the calf muscle in either lower leg. 3. Any fluid drainage from the incision. 4. Shortness of breath or chest pain. B. Please call [facility] [place] at if you have any concerns or questions about your operation or recovery. The doctor or his nurse will return your call promptly. C. You must take antibiotics before dental work, bladder, bowel or other surgery. Your doctor will provide you with a permanent care to carry describing this precaution. IMPORTANT: * REMEMBER TO TAKE ASPIRIN, 81 MG, TWICE DAILY FOR 4 WEEKS UNLESS OTHERWISE DIRECTED. THIS IS YOUR BLOOD THINNER. * HIGH RISK PATIENTS MAY BE PRESCRIBED A STRONGER BLOOD THINNER. THIS WILL BE PROVIDED AT DISCHARGE. * CALL IF INCREASED PAIN, REDNESS, DRAINAGE OR FEVER GREATER THAT 101. * WEAR PABLITO HOSE 20 HOURS PER DAY FOR 2 WEEKS. * You have a Zipline Closure System. As noted below, this keeps your incision closed. Change the dressing daily. Keep the wound covered with a dressing as it has the potential to snag on your clothing. The Zipline will remain on for a total of 2 weeks. Do not remove it! You may shower with this on. Do not soak it; no tub baths. You will be given instructions by nursing staff at the time of discharge to care for your Zip Closure System. This devices uses plastic straps to keep your incision closed and protected throughout your recovery. If you have any questions please refer to these instructions first. [phone]. FOLLOW UP VISIT: If appointment is not already scheduled: Please call [facility] [place] to make a follow-up appointment for 2 weeks after your surgery at . Current Hospital Diet Patient's current hospital diet: Regular Diet Discharge Diet Recommended Diet: Regular Diet Procedures Procedures Performed: Left Total Knee Arthroplasty Pending Studies Studies pending at discharge: no Laboratory Results Hemoglobin A1c Test 06/16/17 11:34 Range/Units Estimated Average Glucose 128 mg/dl Hemoglobin A1c 6.1 H 4.5-5.6 % Medical Emergencies . Who to Call and When: Medical Emergencies: If at any time you feel your situation is an emergency, please call 911 immediately. . Non-Emergent Contact Non-Emergency issues call your: Surgeon Call Non-Emergent contact if: temperature is above 101.5, your pain is not controlled, wound has increased drainage, wound has increased redness . "Provider Documentation" section prepared by Richy Gamez PA-C. . [place] Drug Monitoring Program Search Results: patient reviewed within database, no issues identified
--- NOTE | 2017-07-01 08:02 | Anesthesiology Progress Note ---
Anesthesia Post Op Note Date & Time Jul 01, 2017 at 08:02 Vital Signs Pain Intensity: 5.0 Vital Signs Past 12 Hours Date Time Temp Pulse Resp B/P (MAP) Pulse Ox O2 Delivery O2 Flow Rate FiO2 07/01/17 07:15 36.4 74 16 163/83 (109) 98 Room Air 07/01/17 02:50 36.6 60 15 130/75 (93) 97 Room Air 06/30/17 23:40 Room Air 06/30/17 22:59 36.7 66 16 109/67 (81) 94 Room Air 06/30/17 20:07 37.2 90 18 129/73 (91) 93 Room Air Notes Mental Status: alert / awake / arousable, participated in evaluation Pt Amnestic to Procedure: Yes Nausea / Vomiting: adequately controlled Pain: adequately controlled Airway Patency, RR, SpO2: stable & adequate BP & HR: stable & adequate Hydration State: stable & adequate Anesthetic Complications: no major complications apparent
[2017-07-01] MEDS: FERROUS GLUCONATE 324 MG TAB PO SCH ×2 (08:31→12:36)
[2017-07-01] MEDS: DOCUSATE SODIUM 100 MG CAP PO SCH (08:32)
[2017-07-01] MEDS: CeleBREX 200 MG CAP PO SCH (08:33)
[2017-07-01] MEDS: FLUTICASONE/SALMETEROL (ADVAIR) 500/50 INH 14 PUFF INH SCH ×2 (08:33→08:34)
[2017-07-01] MEDS ORDERED: MONTELUKAST SOD 10 MG TAB PO SCH (09:00)
[2017-07-01] MEDS ORDERED: MULTIVITAMIN TAB PO SCH (09:00)
[2017-07-01] MEDS ORDERED: MONTELUKAST PO SCH (09:00)
[2017-07-01] MEDS ORDERED: RIVAROXABAN 10 MG TAB PO SCH (11:00)
[2017-07-01 11:19] VITALS: BP 131/72; PULSE 58; TEMP 36.9; O2SAT 95
[2017-07-01 12:45] VITALS: BP 131/72; PULSE 58; TEMP 36.9; O2SAT 95
== END 2017-07-01 14:05 | disposition home health service (06) | DRG 470 ==
LOC: C.ACU 08:04 → C.3E 09:30 → ENRESERV 13:02
PROC: 0SRD0J9 Replacement of Left Knee Joint with Synthetic Substitute, Cemented, Open Approach (ICD-10-PCS; principal; 2017-06-30 10:45)
DX: M17.12 Unilateral primary osteoarthritis, left knee (principal); Z68.41 Body mass index [BMI] 40.0-44.9, adult; J45.909 Unspecified asthma, uncomplicated; E66.01 Morbid (severe) obesity due to excess calories; Z86.718 Personal history of other venous thrombosis and embolism; Z98.890 Other specified postprocedural states; Z90.49 Acquired absence of other specified parts of digestive tract; Z79.899 Other long term (current) drug therapy; Z88.5 Allergy status to narcotic agent

== ENCOUNTER → 2017-10-04 | Outpatient (CLI) | payer OTHER ==
[~2017-10-04] MED LIST changes: -ACET-1256 PO; -ACETAMINOPHEN 500 MG TAB PO SCH; -CEFAZOLIN 2000MG IV PUSH 15 ML IV SCH; -CeleBREX 200 MG CAP PO SCH; -DEXAMETHASONE 4 MG TAB PO SCH; -FAMOTIDINE 20 MG TAB PO SCH; -GABAPENTIN 300 MG CAP PO SCH; +HYDR-5688 PO; -IBUP-1050 PO; -LACTATED RINGER'S 1000ML 1,000 ML IV SCH; -LACTATED RINGER'S 1000ML 500 ML IV SCH; -METOCLOPRAMIDE HCL 10 MG TAB PO SCH; -NAPR220T PO; -POVIDONE-IODINE OP SOLN 30 ML BTL ONE; -ROPIVACAINE 5MG/ML 30 ML 150 MG, BUPIVACAINE 0.5% MPF INJ 30 ML, EpINEphrine HCL INJ 0.... INFIL SCH; -TRANEXAMIC ACID INJ 1,000 MG x 1 Bag Intra-Op IV SCH
--- NOTE | 2017-10-04 16:19 | MAMMOGRAPHY REPORT ---
BILATERAL DIGITAL SCREENING MAMMOGRAM TOMOSYNTHESIS WITH CAD: 10/04/2017 CLINICAL HISTORY: Routine screening. Patient has no complaints. TECHNIQUE: The study was acquired using full field digital technology and interpreted from soft copy. Breast tomosynthesis in addition to standard 2D mammography was performed. Current study was also ev aluated with a Computer Aided Detection (CAD) system. COMPARISON: Comparison is made to exams dated: 10/01/2016 mammogram, 09/30/2015 mammogram, 09/19/2014 ma mmogram, 09/18/2013 mammogram, 09/12/2012 mammogram, and 09/02/2011 mammogram - [facility] er. BREAST COMPOSITION: The tissue of both breasts is almost entirely fatty. FINDINGS: There are minimal vascular calcifications in the breasts. A few scattered benign rodlike a nd round calcifications bilaterally. No suspicious mass, architectural distortion or cluster of micro calcifications is seen. IMPRESSION: ACR BI-RADS CATEGORY 1: NEGATIVE There is no mammographic evidence of malignancy. A 1 year screening mammogram is recommended.( [id number]) The patient will receive written notification of the results. Some breast cancers are not detected with mammography. A negative mammographic report should not keisha y biopsy if a clinically suggestive mass is present. Yokasta Zheng M.D. ay/:10/04/2017 15:33:30 Refrigerator Room Clerk: RT Aldo(R)(M)(BD), [facility] letter sent: Normal 1/2 BI-RADS Code: ACR BI-RADS Category 1: Negative
== END | disposition home or self-care (01) ==
LOC: C.MAMM 09:30
PROVIDERS: ATTEND Family Medicine
DX: Z12.31 Encounter for screening mammogram for malignant neoplasm of breast (principal)

== ENCOUNTER 2019-02-01 19:50 | Inpatient (IN) ==
[2019-02-01] MEDS ORDERED: CEFEPIME 2,000 MG/20 ML VIAL IV STA (19:57)
[2019-02-01] MEDS ORDERED: LEVOFLOXACIN/D5W 750 MG/150 ML BAG IV SCH (20:00)
[2019-02-01 20:36] LABS: Basophils # (auto) 0.01 K/uL (0-0.2); Basophils % (auto) 0.1 %; Hematocrit (blood only) 41.6 % (37-47); Hemoglobin 13.6 g/dL (12.0-16.0); Immature Granulocytes # (auto) 0.05 K/uL (0.00-0.02); Immature Granulocytes % (auto) 0.5 %; Lymphocytes # (auto) 0.71 K/uL (1.2-3.4); Lymphocytes % (auto) 6.5 %; Mean Corpuscular Hemoglobin 30.4 pg (25-34); Mean Corpuscular Hgb Conc 32.7 g/dL (32-36); Mean Corpuscular Volume 92.9 fL (80-100); Mean Platelet Volume 9.5 fL (7.4-10.4); Monocytes # (auto) 0.42 K/uL (0.11-0.59); Monocytes % (auto) 3.9 %; Neutrophils # (auto) 9.66 K/uL (1.4-6.5); Platelet Count 278 K/uL (130-400); RDW Standard Deviation 44.1 fL (36.4-46.3); Red Blood Count 4.48 M/uL (4.2-5.4); White Blood Count 10.85 K/uL (4.8-10.8)
[2019-02-01 20:52] LABS: Est GFR (African American) 71.4; Potassium 3.7 mmol/L (3.5-5.1)
[2019-02-01 20:53] LABS: Albumin Level 3.3 gm/dl (3.4-5.0); BUN Creatinine Ratio 11.8 (10-20); Calcium 9.3 mg/dl (8.5-10.1); Creatinine Clr Calc Pharmacy 64.7 ml/min; Est GFR (Non-African American) 61.6; INR 1.1 (0.9-1.1); Partial Thromboplastin Ratio 0.8; Partial Thromboplastin Time 20.8 Seconds (21.0-31.0)
[2019-02-01 20:55] LABS: Albumin Globulin Ratio 0.7 (0.9-2); Bilirubin,Total 0.3 mg/dl (0.2-1); Globulin 4.6 gm/dl (2.5-4.0); Total Protein 7.9 gm/dl (6.4-8.2)
[2019-02-01 20:56] LABS: Appearance Urine Clear (Clear); Bacteria Urine Automated Negative (Negative); Bilirubin Urine Negative (Negative); Blood Urine Negative (Negative); Color Urine Yellow; Epithelial Cell Urine Auto >30 /lpf (0-5); Glucose Urine UA Negative (Negative); Ketones Urine Negative (Negative); Leukocyte Esterase Urine Trace (Negative); Nitrite Urine Negative (Negative); Protein Urine Negative (Negative); RBC Urine Automated 0-4 /hpf (0-4); Specific Gravity Urine 1.017 (1.000-1.030); Urobilinogen Urine Negative (Negative); pH Urine 5.5 (4.5-7.5)
[2019-02-01] MEDS ORDERED: IOVERSOL 100ml IV PRN (21:07)
[2019-02-01 21:09] LABS: Renal Epithelial Cells Urine 0-5 /lpf (0-5)
--- NOTE | 2019-02-01 21:47 | CT Scan Report ---
CHEST CT WITH CONTRAST; CT abdomen and pelvis with IV contrast only CT DOSE: 1540.58 mGycm HISTORY: Acute sepsis gram neg in BC TECHNIQUE: Multiaxial CT images of the chest were performed following the IV administration of 93 cc of Optiray 320. A dose lowering technique was utilized adhering to the principles of ALARA. COMPARISON: CT abdomen pelvis 04/07/2018, CTA chest 08/02/2016 FINDINGS: CT CHEST: Unremarkable thyroid. Scattered prominent nonspecific mediastinal lymph nodes are present. No patholo gic adenopathy by CT size criteria. Heart is normal in size without pericardial effusion. Coronary ar terial calcifications are noted. There is no thoracic aortic aneurysm or dissection. Patency of the i aspen great vessels. Unopacified pulmonary artery is unremarkable. Collateral veins of the left axill a. Possible left subclavian vein stenosis. No pneumothorax, pleural effusion or focal airspace consolidation typical for pneumonia. Small right Bochdalek hernia. There are no suspicious pulmonary nodules or masses. No overt pulmonary edema. Cent ral airways appear patent. Soft tissues of the chest are unremarkable. Mild degenerative changes of t he spine. No suspicious bone lesions. Schmorl's node with remote appearing superior endplate compress ion deformity at T12. No retropulsion. CT ABDOMEN/PELVIS: No pneumatosis or pneumoperitoneum. Hepatic steatosis with mild hepatomegaly. No focal hepatic mass l esion. Cholecystectomy. Spleen, pancreas and adrenal glands appear unremarkable. Mild nonspecific kori ateral perinephric stranding. No renal or ureteral calculi or obstructive uropathy. There is equivoca l urothelial thickening of the right renal pelvis. Circumferential wall thickening of the bladder wit h partial distention. Unchanged fatty attenuating linear structure of the central uterus. No adnexal mass lesion. Calcified plaque the abdominal aorta without aneurysm. No adenopathy. No bowel obstruction or bowel wall thickening. Colonic diverticulosis. There is minimal inflammatory stranding surrounding the proximal descending colon on image 165 series 6 which is new from prior. Un remarkable appendix. Soft tissues are unremarkable. Degenerative changes of the spine, pelvis and hip s. Remote T12 compression deformity. IMPRESSION: 1. Findings suspicious for cystitis. Correlate with urinalysis. 2. Colonic diverticulosis. Minimal inflammatory stranding adjacent to the proximal descending colon, equivocal for subtle acute diverticulitis. Correlate clinically. 3. No bowel obstruction. 4. No acute intrathoracic abnormality. 5. Hepatic steatosis. 6. Additional findings as above. Electronically signed by: Charly Suarez M.D. 02/01/2019 9:45 PM
[2019-02-01] MEDS ORDERED: SODIUM CHLORIDE 0.9% 1000ML 1,000 ML IV ONE (22:18)
--- NOTE | 2019-02-01 23:00 | History & Physical Report ---
Date of Service February 01, 2019 Assessment & Plan (1) Severe sepsis: SIRS plus lactic acid elevation secondary to complicated UTI, hx urinary incontinence as per records Septicemia, gram-negative rods noted on initial blood cultures Situational hypertension asthma, better controlled with new controller medications as per patient Viral rhinosinusitis Recent diverticulitis status post Rx prediabetes as per records, recent outpatient hemoglobin A1c of 6.12 November 2018 GMF Cefepime for now, follow final blood CS IVF, follow lactic acid DC Augmentin for sinusitis as symptoms more consistent with viral URTI DVT prophylaxis. Lovenox subcu Full code History of Present Illness Chief Complaint: Abnormal blood work Primary Care Provider: Sinan Russo MD History obtained from patient, family, and records. Medical history significant for asthma, allergic rhinitis, osteoarthritis, history diverticulosis as per records, Urinary incontinence as per records, prediabetes as per records. Recent confinement June 2017 under orthopedics service for elective left knee surgery. Last month, patient noted left-sided abdominal pain. Patient prescribed Cipro Flagyl for presumptive diverticulitis. Outpatient CT abdomen pelvis showed acute epiploic appendagitis of the proximal descending colon. Cipro Flagyl later switch to Augmentin course due to patient intolerance for former medications. Abdominal discomfort resolved. 2 days history of stuffy nasal congestion, cough symptoms productive of clear sputum, severe achy headache with nausea and some vomiting. Fever, chills at home. Some bladder discomfort, patient requesting for cranberry juice. No chest pain, no S OB, no abdominal pain. This morning, patient brought to ER for evaluation. Prescribed Augmentin for sinusitis. Patient also given Decadron at the ER. Blood cultures 2 bottles noted to grow gram-negative rods. Patient requested to return to the emergency room. Patient given IV Cefepime, Levaquin at the ER. 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 Allergies Allergy/AdvReac Type Severity Reaction Status Date / Time codeine Allergy Mild NAUSEA Unverified 02/01/19 08:40 aspartame Allergy Unknown SWELLING Unverified 02/01/19 08:40 HIVES guaifenesin Allergy Unknown SWELLING Unverified 02/01/19 08:40 HIVES morphine Allergy Unknown VOMITING Unverified 02/01/19 08:40 Quinolones AdvReac Intermediate Vomiting Unverified 02/01/19 19:31 tramadol AdvReac Mild ULTRACET-VO Verified 02/01/19 08:40 MITING lactose AdvReac Unknown INTOLERANCE, Verified 02/01/19 08:40 DAIRY PRODUCTS oxycodone AdvReac Unknown n/v Verified 02/01/19 08:40 Home Medications Home Medications Medication Instructions Recorded Confirmed Type albuterol sulfate [Ventolin HFA] 2 puff INHALATION Q4H PRN 04/06/18 02/01/19 History fluticasone propionate [Flonase 2 spray INTRANASAL HS 04/06/18 02/01/19 History Allergy Relief] furosemide 20 mg PO QAM 04/06/18 02/01/19 History hydrocortisone-iodoquinol 1 applic TOPICAL TID PRN 04/06/18 02/01/19 History [Dermazene] levocetirizine 5 mg PO QAM 04/06/18 02/01/19 History mometasone [El[place]] 1 applic TOPICAL DAILY PRN 04/06/18 02/01/19 History montelukast 10 mg PO HS 04/06/18 02/01/19 History oxybutynin chloride 5 mg PO BID PRN 04/06/18 02/01/19 History vit [id number] [B 1 tab SUBLINGUAL QAM 04/06/18 02/01/19 History Complex] Bifidobacterium infantis [Align] 0 mg PO QAM 02/01/19 02/01/19 History acetaminophen [Tylenol Arthritis 650 mg PO Q12H PRN 02/01/19 02/01/19 History Pain] amoxicillin-pot clavulanate 1 tab PO BID #20 tab 02/01/19 02/01/19 Rx [Augmentin] atorvastatin 20 mg PO DAILY 02/01/19 02/01/19 History cholecalciferol (vitamin D3) 0 unit PO QAM 02/01/19 02/01/19 History [Vitamin D3] fluticasone furoate-vilanterol 1 inh INHALATION DAILY 02/01/19 02/01/19 History [Breo Ellipta] ibuprofen 200 mg PO Q6H PRN 02/01/19 02/01/19 History meclizine 0 mg PO DAILY PRN 02/01/19 02/01/19 History prednisone 10 mg PO DIRECTED PRN 02/01/19 02/01/19 History psyllium husk [Fiber (psyllium 0 g PO QAM 02/01/19 02/01/19 History husk)] Past Med/Surg History Medical History Asthma (Chronic) Surgical History No pertinent past surgical history Family History Other FHx: cancer Family history of diabetes mellitus Social History Preferred Language: Urdu Communication Ability: Effective Toolroom Attendant Required: No Beliefs That Will Affect Care: None Current Living Situation: Spouse Feels Safe at Home: Yes Smoking Status: Never smoker Hx Alcohol Use: Yes Hx Substance Use: No Review of Systems Review of Systems: As per HPI, all 10 systems reviewed, all other ROS negative Physical Exam Physical Exam: GENERAL: Comfortable, obese, pleasant, no respiratory distress SKIN: Normal color, warm HEENT: [place] palpebral conjunctivae, no ptosis, dry buccal mucosa NECK : Supple, short neck, no tenderness CHEST : CTA, no tenderness HEART : RRR, no obvious murmurs ABDOMEN: Some distention, nontender EXTREMITIES : No LE swelling/tenderness, no other conspicuous deformities noted NEUROLOGIC : Coherent, no facial asymmetry, no other gross focality Results & Data Vital Signs (Past 12 Hours) Vital Signs Temp Pulse Resp BP Pulse Ox 02/01/19 22:30 65 15 96 02/01/19 22:00 72 20 167/92 H 96 02/01/19 21:31 71 19 92 02/01/19 21:30 72 16 156/89 H 94 02/01/19 21:17 72 18 96 02/01/19 21:14 72 15 161/82 H 96 02/01/19 19:52 36.6 C 103 H 18 164/93 H 92 Laboratory Results Laboratory Results WBC 10.85 K/uL (4.8-10.8) H 02/01/19 20:22 RBC 4.48 M/uL (4.2-5.4) 02/01/19 20: Hgb 13.6 g/dL (12.0-16.0) 02/01/19 20: Hct 41.6 % (37-47) 02/01/19 20: MCV 92.9 fL (80-100) 02/01/19 20: MCH 30.4 pg (25-34) 02/01/19 20: MCHC 32.7 g/dL (32-36) 02/01/19 20: RDW Std Deviation 44.1 fL (36.4-46.3) 02/01/19 20: RDW Coeff of [place] 13.0 % (11.5-14.5) 02/01/19: Plt Count 278 K/uL (130-400) 02/01/19 20: MPV 9.5 fL (7.4-10.4) 02/01/19 20: Immature Gran % (Auto) 0.5 % 02/01/19: Neut % (Auto) 89.0 % 02/01/19 20: Lymph % (Auto) 6.5 % 02/01/19: [place] % (Auto) 3.9 % 02/01/19: Eos % (Auto) 0.0 % 02/01/19: Baso % (Auto) 0.1 % 02/01/19: Immature Gran # (Auto) 0.05 K/uL (0.00-0.02) H 02/01/19: Neut # (Auto) 9.66 K/uL (1.4-6.5) H 02/01/19 20: Lymph # (Auto) 0.71 K/uL (1.2-3.4) L 02/01/19 20: [place] # (Auto) 0.42 K/uL (0.11-0.59) 02/01/19 20: Eos # (Auto) 0.00 K/uL (0-0.5) 02/01/19 20: Baso # (Auto) 0.01 K/uL (0-0.2) 02/01/19: PT 11.0 Seconds (9.0-12.0) 11/21/19 20:22 INR 1.1 (0.9-1.1) 02/01/19 20:22 APTT 20.8 Seconds (21.0-31.0) L 02/01/19 20:22 PTT Ratio 0.8 02/01/19 20:22 Sodium 136 mmol/L (136-145) 02/01/19 20:22 Potassium 3.7 mmol/L (3.5-5.1) 02/01/19 20:22 Chloride 103 mmol/L (98-107) 02/01/19 20:22 Carbon Dioxide 25 mmol/L (21-32) 02/01/19 20:22 Anion Gap 8.0 (3-11) 02/01/19 20:22 BUN 11 mg/dl (7-18) 02/01/19 20:22 Creatinine 0.96 mg/dl (0.6-1.2) 02/01/19 20:22 Est Cr Clr Drug Dosing 64.7 ml/min 02/01/19 20:22 Est GFR ( Amer) 71.4 02/01/19 20:22 Est GFR (Non-Af Amer) 61.6 02/01/19 20:22 BUN/Creatinine Ratio 11.8 (10-20) 02/01/19 20:22 Glucose 180 mg/dl (70-99) H 02/01/19 20:22 Lactate 2.2 mmol/L (0.4-2.0) H* 02/01/19 20:22 Calcium 9.3 mg/dl (8.5-10.1) 02/01/19 20:22 Magnesium 2.3 mg/dl (1.8-2.4) 02/01/19 22:31 Total Bilirubin 0.3 mg/dl (0.2-1) 02/01/19 20:22 AST 18 U/L (15-37) 02/01/19 20:22 ALT 37 U/L (12-78) 02/01/19 20:22 Alkaline Phosphatase 83 U/L (45-117) 02/01/19 20:22 Total Protein 7.9 gm/dl (6.4-8.2) 02/01/19 20:22 Albumin 3.3 gm/dl (3.4-5.0) L 02/01/19 20:22 Globulin 4.6 gm/dl (2.5-4.0) H 02/01/19 20:22 Albumin/Globulin Ratio 0.7 (0.9-2) L 02/01/19:22 Urine Color Yellow 02/01/19 20:20 Urine Appearance Clear (Clear) 02/01/19 20:20 Urine pH 5.5 (4.5-7.5) 02/01/19 20:20 Ur Specific [place] 1.017 (1.000-1.030) 02/01/19 20:20 Urine Protein Negative (Negative) 02/01/19 20:20 Urine Glucose (UA) Negative (Negative) 02/01/19 20:20 Urine Ketones Negative (Negative) 02/01/19:20 Urine Blood Negative (Negative) 02/01/19:20 Urine Nitrite Negative (Negative) 02/01/19 20:20 Urine Bilirubin Negative (Negative) 02/01/19 20:20 Urine Urobilinogen Negative (Negative) 02/01/19 20:20 Ur Leukocyte Esterase Trace (Negative) H 02/01/19 20:20 Urine WBC (Auto) 5-10 /hpf (0-5) H 02/01/19 20:20 Urine RBC (Auto) 0-4 /hpf (0-4) 02/01/19 20:20 U Hyaline Cast (Auto) 1-5 /lpf (0-5) 02/01/19 20:20 U Epithel Cells (Auto) >30 /lpf (0-5) H 02/01/19 20:20 Urine Bacteria (Auto) Negative (Negative) 02/01/19 20:20 Ur Renal Epithelial Cell 0-5 /lpf (0-5) 02/01/19 20:[address] chest Unremarkable thyroid. Scattered prominent nonspecific mediastinal lymph nodes are present. No pathologic adenopathy by CT size criteria. Heart is normal in size without pericardial effusion. Coronary arterial calcifications are noted. There is no thoracic aortic aneurysm or dissection. Patency of the imaged great vessels. Unopacified pulmonary artery is unremarkable. Collateral veins of the left axilla. Possible left subclavian vein stenosis. No pneumothorax, pleural effusion or focal airspace consolidation typical for pneumonia. Small right Bochdalek hernia. There are no suspicious pulmonary nodules or masses. No overt pulmonary edema. Central airways appear patent. Soft tissues of the chest are unremarkable. Mild degenerative changes of the spine. No suspicious bone lesions. Schmorl's node with remote appearing superior endplate compression deformity at T12. No retropulsion. CT abdomen pelvis: 1. Findings suspicious for cystitis. Correlate with urinalysis. 2. Colonic diverticulosis. Minimal inflammatory stranding adjacent to the proximal descending colon, equivocal for subtle acute diverticulitis. Correlate clinically. 3. No bowel obstruction. 4. No acute intrathoracic abnormality. 5. Hepatic steatosis.
[2019-02-01] MEDS ORDERED: TRAMADOL HCL 50 MG TABLET PO PRN (23:46)
[2019-02-01] MEDS ORDERED: FLUTICASONE/SALMETEROL 250/50 (ADVAIR) 14 PUFF/1 INHALER INH SCH (23:46)
[2019-02-01] MEDS ORDERED: ACETAMINOPHEN 325 MG TAB PO PRN (23:46)
[2019-02-01] MEDS ORDERED: PROMETHAZINE HCL 12.5 MG in SODIUM CHLORIDE 0.9% 50 ML IV PRN (23:46)
--- NOTE | 2019-02-01 23:47 | Emergency Department Note ---
Entered by Lamberto Cole acting as a scribe for History of Present Illness General Chief complaint: Infection Stated complaint: BLOOD INFECTION Source: patient Limitations: no limitations History of Present Illness Onset (ago): hour(s) 4 Pain Consistency: + constant Maximum Pain Intensity: 6 Quality: + constant Associated symptoms: + denies other symptoms (burning with urination), + fever/chills and + nausea/vomiting; no shortness of breath Treatments prior to arrival: other (Fluids and augmentin) The patient is a 68 year old female who presents to the Emergency Room with complaints of constant chills starting 4 hours ago. The patient states she has had a headache since yesterday and notes it feels like pressure. The patient states she had a 100.6 fever yesterday and had whole body shakes and chills that lasted 3 hours. The patient states she vomited twice this morning. She notes she came to the ED this morning. She notes she has asthma and has not taken Breo or her allergy medicine for the past 48 hours. She states she was diagnosed with epiploic appendagitis and has been having intermittent left lower quadrant pain for the past month. She states she has been taking medicine for her bowels and it has been helping with her abdominal pain. The patient denies burning with urination or SOB. The patient states she has had a cough but states it is not new. EMR reviewed. The patient had a cough, headaches, shakes, nausea, vomiting, and SOB. The patient received fluids and Augmentin. The patinet's culture grew out gram negative bacilli. Home Medications Home Medications Medication Instructions Recorded Confirmed Type albuterol sulfate [Ventolin HFA] 2 puff INHALATION Q4H PRN 04/06/18 02/01/19 History fluticasone propion-salmeterol 1 inh INHALATION BID 04/06/18 02/01/19 History [Advair Diskus] fluticasone propionate [Flonase 2 spray INTRANASAL HS 04/06/18 02/01/19 History Allergy Relief] furosemide 20 mg PO QAM 04/06/18 02/01/19 History hydrocortisone-iodoquinol 1 applic TOPICAL TID PRN 04/06/18 02/01/19 History [Dermazene] levocetirizine 5 mg PO QAM 04/06/18 02/01/19 History mometasone [Elocon] 1 applic TOPICAL DAILY PRN 04/06/18 02/01/19 History montelukast 10 mg PO HS 04/06/18 02/01/19 History oxybutynin chloride 5 mg PO BID PRN 04/06/18 02/01/19 History vit [id number] [B 1 tab SUBLINGUAL QAM 04/06/18 02/01/19 History Complex] Bifidobacterium infantis [Align] 0 mg PO QAM 02/01/19 02/01/19 History acetaminophen [Tylenol Arthritis 650 mg PO Q12H PRN 02/01/19 02/01/19 History Pain] amoxicillin-pot clavulanate 1 tab PO BID #20 tab 02/01/19 02/01/19 Rx [Augmentin] atorvastatin 20 mg PO DAILY 02/01/19 02/01/19 History cholecalciferol (vitamin D3) 0 unit PO QAM 02/01/19 02/01/19 History [Vitamin D3] fluticasone furoate-vilanterol 1 inh INHALATION DAILY 02/01/19 02/01/19 History [Breo Ellipta] ibuprofen 200 mg PO Q6H PRN 02/01/19 02/01/19 History meclizine 0 mg PO DAILY PRN 02/01/19 02/01/19 History prednisone 10 mg PO DIRECTED PRN 02/01/19 02/01/19 History psyllium husk [Fiber (psyllium 0 g PO QAM 02/01/19 02/01/19 History husk)] Allergies Allergy/AdvReac Type Severity Reaction Status Date / Time codeine Allergy Mild NAUSEA Unverified 02/01/19 08:40 aspartame Allergy Unknown SWELLING Unverified 02/01/19 08:40 HIVES guaifenesin Allergy Unknown SWELLING Unverified 02/01/19 08:40 HIVES morphine Allergy Unknown VOMITING Unverified 02/01/19 08:40 Quinolones AdvReac Intermediate Vomiting Unverified 02/01/19 19:31 tramadol AdvReac Mild ULTRACET-VO Verified 02/01/19 08:40 MITING lactose AdvReac Unknown INTOLERANCE, Verified 02/01/19 08:40 DAIRY PRODUCTS oxycodone AdvReac Unknown n/v Verified 02/01/19 08:40 Past Med/Surg History Medical History Asthma (Chronic) Surgical History No pertinent past surgical history Family History Other FHx: cancer Family history of diabetes mellitus Social History Feels Safe at Home: Yes Smoking Status: Never smoker Review of Systems See HPI for pertinent positives & negatives. and A total of 10 systems reviewed and were otherwise negative Physical Exam Vital Signs Vital Signs - 24 hr 02/01/19 19:52 02/01/19 21:14 02/01/19 21:17 Temperature 36.6 C Temperature Source Oral Pulse Rate 103 H 72 72 Pulse Rate [Finger] Pulse Rate from SpO2 Sensor 72 72 Pulse Rhythm Regular Pulse Strength Normal Respiratory Rate 18 15 18 Respiratory Effort / Characteristics Non-Labored Spontaneous Respiratory Depth Normal Respiratory Pattern Regular Blood Pressure 164/93 H 161/82 H Blood Pressure [Left Arm] Blood Pressure Mean 116 109 Blood Pressure Mean [Left Arm] Blood Pressure Position Sitting Pulse Oximetry 92 96 96 Oxygen Delivery Method Room Air Sepsis Recent Fever Within 48 Hours Yes Sepsis Action Taken by Nursing No Action Required 02/01/19 21:30 02/01/19 21:31 02/01/19 22:00 Temperature Temperature Source Pulse Rate 72 71 72 Pulse Rate [Finger] Pulse Rate from SpO2 Sensor 71 70 70 Pulse Rhythm Pulse Strength Respiratory Rate 16 19 20 Respiratory Effort / Characteristics Respiratory Depth Respiratory Pattern Blood Pressure 156/89 H 167/92 H Blood Pressure [Left Arm] Blood Pressure Mean 117 134 Blood Pressure Mean [Left Arm] Blood Pressure Position Pulse Oximetry 94 92 96 Oxygen Delivery Method Sepsis Recent Fever Within 48 Hours Sepsis Action Taken by Nursing 02/01/19 22:30 02/01/19 23:00 Temperature Temperature Source Pulse Rate 65 Pulse Rate [Finger] 57 L Pulse Rate from SpO2 Sensor 65 Pulse Rhythm Pulse Strength Respiratory Rate 15 18 Respiratory Effort / Characteristics Respiratory Depth Respiratory Pattern Blood Pressure Blood Pressure [Left Arm] 178/88 H Blood Pressure Mean Blood Pressure Mean [Left Arm] 118 Blood Pressure Position Pulse Oximetry 96 98 Oxygen Delivery Method Room Air Sepsis Recent Fever Within 48 Hours Sepsis Action Taken by Nursing GENERAL: Obese. Sitting up at the edge of the bed, laughing. Slightly diaphoretic. Ill-appearing. HEAD: Frontal and maxillary sinus tenderness. EYE EXAM: normal conjunctiva OROPHARYNX: no exudate, no erythema, lips, buccal mucosa, and tongue normal and mucous membranes are moist NECK: supple, no nuchal rigidity, no adenopathy, non-tender LUNGS: Distant clear to auscultation. Normal chest wall mechanics HEART: Distant. no murmurs, S1 normal and S2 normal ABDOMEN: abdomen soft, non-tender, normo-active bowel sounds, no masses, no rebound or guarding. BACK: Back is symmetrical on inspection and there is no deformity, no midline tenderness, no CVA tenderness. SKIN: no rashes and no bruising UPPER EXTREMITIES: upper extremities are grossly normal. LOWER EXTREMITIES: No pitting edema. NEURO EXAM: Normal sensorium, cranial nerves II-XII grossly intact, normal speech, no gross weakness of arms, no gross weakness of legs. Course Course ED COURSE: Vital signs were reviewed and showed Tachycardia and HTN The patients medical record was reviewed The above diagnostic studies were performed and reviewed. ED treatments and interventions as stated above. 2001: The patient was evaluated in room B2. A complete history and physical examination was performed. 2199: Upon reevaluation, the patient is getting admitted. I discussed my findings with the patient and she understands and agrees with the treatment plan. 2204: I discussed the patient's case with Dr. Theresa Durham [facility] Hospitalist. He will evaluate the patient for further management Based on the patients age, coexisting illnesses, exam and lab findings the decision to treat as an inpatient was made. The patient remained stable while under my care. The patient will be evaluated for further management. Administered Medications Levofloxacin/Dextrose (Levaquin/D5w) 750 mg in 150 mls @ 100 mls/hr IV Q24H AKIKO Stop: 03/15/19 19:59 Last Infusion: 02/01/19 22:46 Dose: 0 mls/hr Documented by: [id number] Admin: 02/01/19 21:15 Dose: 100 mls/hr Documented by: [id number] Ioversol (Optiray 320 100ml) 93 ml IV ONCE PRN PRN Reason: Interaction Checking Stop: 02/05/19 21:06 Last Admin: 02/01/19 21:08 Dose: 93 ml Documented by: [id number] Discontinued Medications Cefepime HCl (Maxipime) 2,000 mg in 20 mls @ 5 mls/min IV NOW STA; Protocol Stop: 02/01/19 20:00 Last Admin: 02/01/19 21:17 Dose: 5 mls/min Documented by: [id number] Sodium Chloride (Nss 1000ml) 1,000 mls @ 999 mls/hr IV .Q1H1M ONE Stop: 02/01/19 23:18 Last Admin: 02/01/19 22:37 Dose: 999 mls/hr Documented by: [id number] Medical Decision Making Differential Diagnosis Differential diagnosis includes etiologies such as sepsis, UTI, pneumonia, m etabolic, electrolyte abnormalities, cardiac sources, intracerebral event, toxicologic, neurologic, as well as others were entertained. Medical Records Attestation: I reviewed the patient's medical records. Home Medications Current Medication List: was personally reviewed by me Laboratory Data Attestation: I reviewed the patient's lab results. Result diagrams: 02/01/19 20:22 02/01/19 20:22 Lab Results 02/01/19 02/01/19 02/01/19 Range/Units 20:20 20:22 20:22 WBC 10.85 H (4.8-10.8) K/uL RBC 4.48 (4.2-5.4) M/uL Hgb 13.6 (12.0-16.0) g/dL Hct 41.6 (37-47) % MCV 92.9 (80-100) fL MCH 30.4 (25-34) pg MCHC 32.7 (32-36) g/dL RDW Std Deviation 44.1 (36.4-46.3) fL RDW Coeff of Brandon 13.0 (11.5-14.5) % Plt Count 278 (130-400) K/uL MPV 9.5 (7.4-10.4) fL Immature Gran % (Auto) 0.5 % Neut % (Auto) 89.0 % Lymph % (Auto) 6.5 % Glynn % (Auto) 3.9 % Eos % (Auto) 0.0 % Baso % (Auto) 0.1 % Immature Gran # (Auto) 0.05 H (0.00-0.02) K/uL Neut # (Auto) 9.66 H (1.4-6.5) K/uL Lymph # (Auto) 0.71 L (1.2-3.4) K/uL Glynn # (Auto) 0.42 (0.11-0.59) K/uL Eos # (Auto) 0.00 (0-0.5) K/uL Baso # (Auto) 0.01 (0-0.2) K/uL PT 11.0 (9.0-12.0) Seconds INR 1.1 (0.9-1.1) APTT 20.8 L (21.0-31.0) Seconds PTT Ratio 0.8 Sodium (136-145) mmol/L Potassium (3.5-5.1) mmol/L Chloride (98-107) mmol/L Carbon Dioxide (21-32) mmol/L Anion Gap (3-11) BUN (7-18) mg/dl Creatinine (0.6-1.2) mg/dl Est Cr Clr Drug Dosing ml/min Est GFR ( Amer) Est GFR (Non-Af Amer) BUN/Creatinine Ratio (10-20) Glucose (70-99) mg/dl Lactate (0.4-2.0) mmol/L Calcium (8.5-10.1) mg/dl Magnesium (1.8-2.4) mg/dl Total Bilirubin (0.2-1) mg/dl AST (15-37) U/L ALT (12-78) U/L Alkaline Phosphatase (45-117) U/L Total Protein (6.4-8.2) gm/dl Albumin (3.4-5.0) gm/dl Globulin (2.5-4.0) gm/dl Albumin/Globulin Ratio (0.9-2) Urine Color Yellow Urine Appearance Clear (Clear) Urine pH 5.5 (4.5-7.5) Ur Specific [place] 1.017 (1.000-1.030) Urine Protein Negative (Negative) Urine Glucose (UA) Negative (Negative) Urine Ketones Negative (Negative) Urine Blood Negative (Negative) Urine Nitrite Negative (Negative) Urine Bilirubin Negative (Negative) Urine Urobilinogen Negative (Negative) Ur Leukocyte Esterase Trace H (Negative) Urine WBC (Auto) 5-10 H (0-5) /hpf Urine RBC (Auto) 0-4 (0-4) /hpf U Hyaline Cast (Auto) 1-5 (0-5) /lpf U Epithel Cells (Auto) >30 H (0-5) /lpf Urine Bacteria (Auto) Negative (Negative) Ur Renal Epithelial Cell 0-5 (0-5) /lpf 02/01/19 02/01/19 02/01/19 Range/Units 20:22 20:22 22:31 WBC (4.8-10.8) K/uL RBC (4.2-5.4) M/uL Hgb (12.0-16.0) g/dL Hct (37-47) % MCV (80-100) fL MCH (25-34) pg MCHC (32-36) g/dL RDW Std Deviation (36.4-46.3) fL RDW Coeff of Brandon (11.5-14.5) % Plt Count (130-400) K/uL MPV (7.4-10.4) fL Immature Gran % (Auto) % Neut % (Auto) % Lymph % (Auto) % Glynn % (Auto) % Eos % (Auto) % Baso % (Auto) % Immature Gran # (Auto) (0.00-0.02) K/uL Neut # (Auto) (1.4-6.5) K/uL Lymph # (Auto) (1.2-3.4) K/uL Glynn # (Auto) (0.11-0.59) K/uL Eos # (Auto) (0-0.5) K/uL Baso # (Auto) (0-0.2) K/uL PT (9.0-12.0) Seconds INR (0.9-1.1) APTT (21.0-31.0) Seconds PTT Ratio Sodium 136 (136-145) mmol/L Potassium 3.7 (3.5-5.1) mmol/L Chloride 103 (98-107) mmol/L Carbon Dioxide 25 (21-32) mmol/L Anion Gap 8.0 (3-11) BUN 11 (7-18) mg/dl Creatinine 0.96 (0.6-1.2) mg/dl Est Cr Clr Drug Dosing 64.7 ml/min Est GFR ( Amer) 71.4 Est GFR (Non-Af Amer) 61.6 BUN/Creatinine Ratio 11.8 (10-20) Glucose 180 H (70-99) mg/dl Lactate 2.2 H* 1.3 (0.4-2.0) mmol/L Calcium 9.3 (8.5-10.1) mg/dl Magnesium (1.8-2.4) mg/dl Total Bilirubin 0.3 (0.2-1) mg/dl AST 18 (15-37) U/L ALT 37 (12-78) U/L Alkaline Phosphatase 83 (45-117) U/L Total Protein 7.9 (6.4-8.2) gm/dl Albumin 3.3 L (3.4-5.0) gm/dl Globulin 4.6 H (2.5-4.0) gm/dl Albumin/Globulin Ratio 0.7 L (0.9-2) Urine Color Urine Appearance (Clear) Urine pH (4.5-7.5) Ur Specific [place] (1.000-1.030) Urine Protein (Negative) Urine Glucose (UA) (Negative) Urine Ketones (Negative) Urine Blood (Negative) Urine Nitrite (Negative) Urine Bilirubin (Negative) Urine Urobilinogen (Negative) Ur Leukocyte Esterase (Negative) Urine WBC (Auto) (0-5) /hpf Urine RBC (Auto) (0-4) /hpf U Hyaline Cast (Auto) (0-5) /lpf U Epithel Cells (Auto) (0-5) /lpf Urine Bacteria (Auto) (Negative) Ur Renal Epithelial Cell (0-5) /lpf 02/01/19 Range/Units 22:31 WBC (4.8-10.8) K/uL RBC (4.2-5.4) M/uL Hgb (12.0-16.0) g/dL Hct (37-47) % MCV (80-100) fL MCH (25-34) pg MCHC (32-36) g/dL RDW Std Deviation (36.4-46.3) fL RDW Coeff of Brandon (11.5-14.5) % Plt Count (130-400) K/uL MPV (7.4-10.4) fL Immature Gran % (Auto) % Neut % (Auto) % Lymph % (Auto) % Glynn % (Auto) % Eos % (Auto) % Baso % (Auto) % Immature Gran # (Auto) (0.00-0.02) K/uL Neut # (Auto) (1.4-6.5) K/uL Lymph # (Auto) (1.2-3.4) K/uL Glynn # (Auto) (0.11-0.59) K/uL Eos # (Auto) (0-0.5) K/uL Baso # (Auto) (0-0.2) K/uL PT (9.0-12.0) Seconds INR (0.9-1.1) APTT (21.0-31.0) Seconds PTT Ratio Sodium (136-145) mmol/L Potassium (3.5-5.1) mmol/L Chloride (98-107) mmol/L Carbon Dioxide (21-32) mmol/L Anion Gap (3-11) BUN (7-18) mg/dl Creatinine (0.6-1.2) mg/dl Est Cr Clr Drug Dosing ml/min Est GFR ( Amer) Est GFR (Non-Af Amer) BUN/Creatinine Ratio (10-20) Glucose (70-99) mg/dl Lactate (0.4-2.0) mmol/L Calcium (8.5-10.1) mg/dl Magnesium 2.3 (1.8-2.4) mg/dl Total Bilirubin (0.2-1) mg/dl AST (15-37) U/L ALT (12-78) U/L Alkaline Phosphatase (45-117) U/L Total Protein (6.4-8.2) gm/dl Albumin (3.4-5.0) gm/dl Globulin (2.5-4.0) gm/dl Albumin/Globulin Ratio (0.9-2) Urine Color Urine Appearance (Clear) Urine pH (4.5-7.5) Ur Specific [place] (1.000-1.030) Urine Protein (Negative) Urine Glucose (UA) (Negative) Urine Ketones (Negative) Urine Blood (Negative) Urine Nitrite (Negative) Urine Bilirubin (Negative) Urine Urobilinogen (Negative) Ur Leukocyte Esterase (Negative) Urine WBC (Auto) (0-5) /hpf Urine RBC (Auto) (0-4) /hpf U Hyaline Cast (Auto) (0-5) /lpf U Epithel Cells (Auto) (0-5) /lpf Urine Bacteria (Auto) (Negative) Ur Renal Epithelial Cell (0-5) /lpf Imaging Data Radiologist's Impression: Radiology results as stated below per my review and the radiologist's interpretation: CHEST CT WITH CONTRAST; CT abdomen and pelvis with IV contrast only CT DOSE: 1540.58 mGycm HISTORY: Acute sepsis gram neg in BC TECHNIQUE: Multiaxial CT images of the chest were performed following the IV administration of 93 cc of Optiray 320. A dose lowering technique was utilized adhering to the principles of ALARA. COMPARISON: CT abdomen pelvis 04/07/2018, CTA chest 08/02/2016 FINDINGS: CT CHEST: Unremarkable thyroid. Scattered prominent nonspecific mediastinal lymph nodes are present. No pathologic adenopathy by CT size criteria. Heart is normal in size without pericardial effusion. Coronary arterial calcifications are noted. There is no thoracic aortic aneurysm or dissection. Patency of the imaged great vessels. Unopacified pulmonary artery is unremarkable. Collateral veins of the left axilla. Possible left subclavian vein stenosis. No pneumothorax, pleural effusion or focal airspace consolidation typical for pneumonia. Small right Bochdalek hernia. There are no suspicious pulmonary nodules or masses. No overt pulmonary edema. Central airways appear patent. Soft tissues of the chest are unremarkable. Mild degenerative changes of the spine. No suspicious bone lesions. Schmorl's node with remote appearing superior endplate compression deformity at T12. No retropulsion. CT ABDOMEN/PELVIS: No pneumatosis or pneumoperitoneum. Hepatic steatosis with mild hepatomegaly. No focal hepatic mass lesion. Cholecystectomy. Spleen, pancreas and adrenal glands appear unremarkable. Mild nonspecific bilateral perinephric stranding. No renal or ureteral calculi or obstructive uropathy. There is equivocal urothelial thickening of the right renal pelvis. Circumferential wall thickening of the bladder with partial distention. Unchanged fatty attenuating linear structure of the central uterus. No adnexal mass lesion. Calcified plaque the abdominal aorta without aneurysm. No adenopathy. No bowel obstruction or bowel wall thickening. Colonic diverticulosis. There is minimal inflammatory stranding surrounding the proximal descending colon on image 165 series 6 which is new from prior. Unremarkable appendix. Soft tissues are unremarkable. Degenerative changes of the spine, pelvis and hips. Remote T12 compression deformity. IMPRESSION: 1. Findings suspicious for cystitis. Correlate with urinalysis. 2. Colonic diverticulosis. Minimal inflammatory stranding adjacent to the prox imal descending colon, equivocal for subtle acute diverticulitis. Correlate clinically. 3. No bowel obstruction. 4. No acute intrathoracic abnormality. 5. Hepatic steatosis. 6. Additional findings as above. Electronically signed by: Charly Suarez M.D. 02/01/2019 9:45 PM Blood Pressure Blood Pressure Findings: Elevated blood pressure Blood Pressure Disposition: further management by hospitalist BRYNN Narrative Patient is a 68-year-old female who was seen here earlier today as she has had shaking chills and fevers the past 24 hours. Blood work was obtained along with blood cultures and all of her blood cultures came back and grew out gram- negative bacilli. We called her back into the ER and she came back in. IV was established blood work was obtained. Patient complains of multiple systems all of which have significantly improved including her abdominal pain and upper respiratory symptoms. Earlier she had a CT of her head which showed a sinusitis. Labs with a leukocytosis of 10.8. No significant anemia. BMP along with LFTs bilirubin was unremarkable. Lactate was elevated at 2.2. UA with leukocytes and white cells. CT suggesting diverticulitis and possible cystitis. Patient was covered with IV cefepime and IV Levaquin as double coverage for the gram-negative bacteremia. She was given IV fluids. She was updated at bedside. She is admitted to the hospital with gram-negative bacteremia likely secondary to urine versus diverticulitis. There is no signs of nuchal rigidity. I do not believe that this is consistent with meningitis i.e. Neisseria gonorrhea. Impression & Plan Gram-negative bacteremia, Diverticulitis, Sepsis, UTI (urinary tract infection) Discharge Plan Visit Data Chief Complaint: Infection Stated Complaint: BLOOD INFECTION ED Provider: Robert Sommers Discharge Problem: Gram-negative bacteremia, Diverticulitis, Sepsis, UTI (urinary tract infection) Discharge Instructions Interventions: ED Discharge Assessment Last Done: 02/01/19 23:31 Discharge Problem: Sepsis Qualifiers: Sepsis type: sepsis due to unspecified organism Sepsis acute organ dysfunction status: unspecified Qualified Code(s): A41.9 - Sepsis, unspecified organism UTI (urinary tract infection) Qualifiers: Urinary tract infection type: site unspecified Hematuria presence: without hematuria Qualified Code(s): N39.0 - Urinary tract infection, site not specified The scribe's documentation has been prepared under my direction and personally reviewed by me in its entirety. I confirm that the note above accurately reflects all work, treatment, procedures, and medical decision making performed by me.
[2019-02-01] MEDS: SODIUM CHLORIDE 0.65% NA SOLN 45 ML (OCEAN) SCH (23:59)
[2019-02-01] MEDS: FLUTICASONE PROPIONATE NA SPR 16 GM BTL SCH (23:59)
[2019-02-01] MEDS: MONTELUKAST SODIUM 10 MG TABLET PO SCH (23:59)
[2019-02-02] MEDS ORDERED: LACTATED RINGER'S 1,000 ML IV ONE
[2019-02-02] MEDS ORDERED: CEFEPIME CONSULT ACTIVE PRN (01:52)
[2019-02-02] MEDS: CEFEPIME 2,000 MG in SYRINGE 7.5 ML IV SCH ×3 (05:45→21:16)
[2019-02-02] MEDS: ATORVASTATIN 20 MG TAB PO SCH (07:26)
[2019-02-02] MEDS: ENOXAPARIN INJ 40 MG/0.4 ML SYR SQ SCH (07:27)
[2019-02-02] MEDS: LEVOCETIRIZINE DIHYDROCHLORIDE PO SCH (07:27)
[2019-02-02] MEDS: SODIUM CHLORIDE 0.65% NA SOLN 45 ML (OCEAN) SCH ×3 (07:27→20:35)
[2019-02-02] MEDS: FLUTICASONE/VILANTEROL INHALER INH SCH (07:27)
[2019-02-02 07:31] LABS: Basophils # (auto) 0.01 K/uL (0-0.2); Basophils % (auto) 0.1 %; Hematocrit (blood only) 41.2 % (37-47); Hemoglobin 13.7 g/dL (12.0-16.0); Immature Granulocytes # (auto) 0.05 K/uL (0.00-0.02); Immature Granulocytes % (auto) 0.4 %; Lymphocytes # (auto) 1.12 K/uL (1.2-3.4); Mean Corpuscular Hemoglobin 30.6 pg (25-34); Mean Corpuscular Hgb Conc 33.3 g/dL (32-36); Mean Platelet Volume 9.5 fL (7.4-10.4); Monocytes # (auto) 0.98 K/uL (0.11-0.59); Neutrophils # (auto) 11.85 K/uL (1.4-6.5); Neutrophils % (auto) 84.5 %; Platelet Count 315 K/uL (130-400); RDW Coefficient of Variation 12.9 % (11.5-14.5); RDW Standard Deviation 43.4 fL (36.4-46.3); Red Blood Count 4.48 M/uL (4.2-5.4); White Blood Count 14.01 K/uL (4.8-10.8)
[2019-02-02 08:04] LABS: Calcium 9.6 mg/dl (8.5-10.1); Creatinine Clr Calc Pharmacy 83.3 ml/min; Est GFR (African American) 97.8; Est GFR (Non-African American) 84.4; Potassium 3.8 mmol/L (3.5-5.1)
[2019-02-02] MEDS ORDERED: ENOXAPARIN INJ 40 MG/0.4 ML SYR SQ SCH (09:00)
--- NOTE | 2019-02-02 11:18 | Infectious Disease Consult ---
Date of Consultation February 02, 2019 Assessment & Plan (1) Gram negative sepsis: (2) UTI (urinary tract infection): will continue cefepime for now pending final sensitivities. repeat cultures pending. will need 14 days abx from first negative blood culture, hopefully can change to po to complete course but will await final cultures. 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 she had elevated wbc 12, UA + 10-30 wbc but no gu symptoms. denies hematuria, dysuria, frequency, urgency, but states to intermittent abd pain and cloudy urine. had ct abd showing cystitis and ct head with fluid in sinus. was d/c from ER with diagnosis of sinusitis and given Augmentin. Later in the day, blood cultures return + for gnr, was called and instructed to come back to ER, she was given levaquin and cefepime in Er and admitted. now of cefepime and tolerating well. no f/c currently but f/c at home, tmax overnight 39.2. 7 am blood cultures from 02/01 - gnr 4/4 bottles, repeat cultures from 20:30 and this am are pending. Urine culture growing gnr as well. She is feeling significantly better today. no n/v/d/abd pain, eating well. no cp, sob, cough. no rangel currently. wbc 14 today, did receive decadron in ER yesterday am. creat 0.7. Had urine culture growing E. coli in 03/2018 - resistant to augmentin and bactrim. Allergies Allergy/AdvReac Type Severity Reaction Status Date / Time codeine Allergy Mild NAUSEA Unverified 02/01/19 08:40 aspartame Allergy Unknown SWELLING Unverified 02/01/19 08:40 HIVES guaifenesin Allergy Unknown SWELLING Unverified 02/01/19 08:40 HIVES morphine Allergy Unknown VOMITING Unverified 02/01/19 08:40 Quinolones AdvReac Intermediate Vomiting Unverified 02/01/19 19:31 tramadol AdvReac Mild ULTRACET-VO Verified 02/01/19 08:40 MITING lactose AdvReac Unknown INTOLERANCE, Verified 02/01/19 08:40 DAIRY PRODUCTS oxycodone AdvReac Unknown n/v Verified 02/01/19 08:40 Home Medications Home Medications Medication Instructions Recorded Confirmed Type albuterol sulfate [Ventolin HFA] 2 puff INHALATION Q4H PRN 04/06/18 02/01/19 History fluticasone propionate [Flonase 2 spray INTRANASAL HS 04/06/18 02/01/19 History Allergy Relief] furosemide 20 mg PO QAM 04/06/18 02/01/19 History hydrocortisone-iodoquinol 1 applic TOPICAL TID PRN 04/06/18 02/01/19 History [Dermazene] levocetirizine 5 mg PO QAM 04/06/18 02/01/19 History mometasone [Elocon] 1 applic TOPICAL DAILY PRN 04/06/18 02/01/19 History montelukast 10 mg PO HS 04/06/18 02/01/19 History oxybutynin chloride 5 mg PO BID PRN 04/06/18 02/01/19 History vit [id number] [B 1 tab SUBLINGUAL QAM 04/06/18 02/01/19 History Complex] Bifidobacterium infantis [Align] 0 mg PO QAM 02/01/19 02/01/19 History acetaminophen [Tylenol Arthritis 650 mg PO Q12H PRN 02/01/19 02/01/19 History Pain] amoxicillin-pot clavulanate 1 tab PO BID #20 tab 02/01/19 02/01/19 Rx [Augmentin] atorvastatin 20 mg PO DAILY 02/01/19 02/01/19 History cholecalciferol (vitamin D3) 0 unit PO QAM 02/01/19 02/01/19 History [Vitamin D3] fluticasone furoate-vilanterol 1 inh INHALATION DAILY 02/01/19 02/01/19 History [Breo Ellipta] ibuprofen 200 mg PO Q6H PRN 02/01/19 02/01/19 History meclizine 0 mg PO DAILY PRN 02/01/19 02/01/19 History prednisone 10 mg PO DIRECTED PRN 02/01/19 02/01/19 History psyllium husk [Fiber (psyllium 0 g PO QAM 02/01/19 02/01/19 History husk)] Patient History Medical History Asthma (Chronic) Surgical History No pertinent past surgical history Family History Other FHx: cancer Family history of diabetes mellitus Social History Preferred Language: Amharic Communication Ability: Effective Rope Maker Required: No Beliefs That Will Affect Care: None Current Living Situation: Spouse Feels Safe at Home: Yes Smoking Status: Never smoker Hx Alcohol Use: Yes Hx Substance Use: No Review of Systems Review of Systems: All systems reviewed & are unremarkable except as noted in HPI & below Physical Exam Constitutional: WD/WN, vitals as above Eyes: PERRL, conjunctivae normal, anicteric sclerae ENMT: external ear and nose normal, oropharynx normal Neck: normal visual inspection Respiratory: normal respiratory effort, lungs clear to auscultation Cardiovascular: RRR, no murmur, no edema Gastrointestinal (Abdomen): normal bowel sounds, soft, nontender, no hepatosplenomegaly Musculoskeletal: no cyanosis or clubbing, extremities motor strength 5/5 Skin: no rashes, warm and dry Psychiatric: A+Ox3, euthymic affect Results & Data Vital Signs (Past 12 Hours) Vital Signs Temp Pulse Resp BP Pulse Ox 02/02/19 07:24 36.6 C 72 16 173/94 H 95 02/01/19 23:35 36.5 C 64 22 162/85 H 96 PG Care Time/CCT Total # of Minutes Spent Total Time Spent with Patient: Total time spent is greater than 50% in coordination of care (as documented) at patient's floor/unit and/or counseling patient: (1) UTI (urinary tract infection) Hematuria presence: without hematuria Urinary tract infection type: site unspecified Qualified Code(s): N39.0 - Urinary tract infection, site not specified
--- NOTE | 2019-02-02 15:54 | Hospitalist Progress Note ---
Date of Service February 02, 2019 Assessment & Plan (1) Gram negative sepsis: Continue cefepime pending culture results. Patient is clinically improved. Uncertain source which could be urine versus recent abdominal infection. No known skin abnormalities per patient. Appreciate ID recomme ndations for de-escalation of antibiotics and assistance with length of course. (2) Sinusitis: Thought to be more viral in nature. Augmentin was not continued on admission. Patient is asymptomatic today. (3) UTI (urinary tract infection): Patient denies any symptoms. Continue cefepime as above. (4) Asthma: Stable, controlled. Continue Flonase, Singulair, nasal saline, Breo per home regimen. (5) DVT prophylaxis: Lovenox Full code Disposition-plan for continuation of hospitalization pending culture results and home when medically stable for discharge. Uncertain if IV medications will be needed at time of discharge this will be pending ID recommendations. Yanet Sales DO [facility] Hospitalist Subjective 68-year-old female admitted for gram-negative septicemia. She has been having abdominal pain for approximately 6 months and was prescribed Cipro and Flagyl for presumptive diverticulitis as outpatient. An outpatient CT of the abdomen pelvis revealed acute epiploic appendagitis of the proximal descending colon. Cipro and Flagyl were later switched to Augmentin due to patient intolerance. Her abdominal discomfort completely resolved. However, 2 days prior to arrival she developed fevers, chills, malaise, sinus congestion with cough that was nonproductive, headache, nausea, vomiting and bladder discomfort. On January 15 she returned from the [facility]. She does not remember being bitten by anything while there was not ill on her trip. She came to the ER on 02/01 and was thought to have a viral syndrome. Flu PCR was negative at that time. Chest x-ray and head CT were clear with the exception of acute pansinusitis seen. Augmentin was given for this and after supportive care she was sent home. Her headache was treated with Decadron. Blood cultures grew gram-negative rods and she was called back to the ER and subsequently admitted. ID was consulted and agrees with cefepime treatment for now pending cultures. The patient looks clinically well today she is tolerating regular food, she is energetic, she is mentating at baseline and free of symptoms. Review of Systems Review of Systems: All systems reviewed & are unremarkable except as noted in HPI & below Physical Exam Physical Exam: CONSTITUTIONAL: WNWD, vitals as above, generally well- appearing EYES: normal conjunctivae, no scleral icterus ENT: MMM RESPIRATORY: clear to auscultation bilaterally, no crackles, rales or wheezes, normal respiratory effort CARDIOVASCULAR: regular rate and rhythm, S1 and 2 heard without murmurs, gallops or rubs, no JVD, no peripheral edema GASTROINTESTINAL: normal bowel sounds, soft, nontender, nondistended MUSCULOSKELETAL: strength 5/5 throughout, head is normocephalic and atraumatic SKIN: warm and dry NEUROLOGIC: CN 2-12 grossly intact, no sensory deficit, normal cognition, normal speech, no gross neurologic deficits PSYCHIATRIC: alert cooperative and oriented to person, place and time. Results & Data Vital Signs (Past 12 Hours) Vital Signs Temp Pulse Resp BP Pulse Ox 02/02/19 15:14 37.5 C 106 H 20 140/82 95 02/02/19 07:24 36.6 C 72 16 173/94 H 95 Laboratory Results Short CBC 02/01/19 02/02/19 Range/Units 20:22 06:56 WBC 10.85 H 14.01 H (4.8-10.8) K/uL Hgb 13.6 13.7 (12.0-16.0) g/dL Hct 41.6 41.2 (37-47) % Plt Count 278 315 (130-400) K/uL BMP 02/01/19 02/02/19 20:22 06:56 Sodium 136 139 Potassium 3.7 3.8 Chloride 103 108 H Carbon Dioxide 25 24 BUN 11 11 Creatinine 0.96 0.74 Glucose 180 H 122 H Calcium 9.3 9.6 Liver Function 02/01/19 Range/Units 20:22 Total Bilirubin 0.3 (0.2-1) mg/dl AST 18 (15-37) U/L ALT 37 (12-78) U/L Alkaline Phosphatase 83 (45-117) U/L Albumin 3.3 L (3.4-5.0) gm/dl Urine 02/01/19 Range/Units 20:20 Urine Color Yellow Urine Appearance Clear (Clear) Urine pH 5.5 (4.5-7.5) Ur Specific [place] 1.017 (1.000-1.030) Urine Protein Negative (Negative) Urine Glucose (UA) Negative (Negative) Medications Administered Current Inpatient Medications Acetaminophen (Tylenol) 650 mg PO Q4H PRN PRN Reason: pain/fever Stop: 03/03/19 23:45 Last Admin: 02/02/19 00:22 Dose: 650 mg Documented by: Atorvastatin Calcium (Lipitor) 20 mg PO DAILY AKIKO Stop: 03/04/19 08:59 Last Admin: 02/02/19 07:26 Dose: Not Given Documented by: Enoxaparin Sodium (Lovenox) 40 mg SQ QAM AKIKO Stop: 03/04/19 08:59 Last Admin: 02/02/19 07:27 Dose: 40 mg Documented by: Fluticasone Propionate (Flonase) 2 sprays NA HS AKIKO Stop: 03/03/19 23:45 Last Admin: 02/01/19 23:59 Dose: Not Given Documented by: Fluticasone/Vilanterol (Breo Ellipta) 1 puffs INH DAILY AKIKO Stop: 03/04/19 08:59 Last Admin: 02/02/19 07:27 Dose: 1 puffs Documented by: Promethazine HCl 12.5 mg/ (Sodium Chloride) 50.5 mls @ 202 mls/hr IV Q6H PRN PRN Reason: Nausea And Vomiting Stop: 03/03/19 23:45 Cefepime HCl 2,000 mg/ Syringe 20 mls @ 5 mls/min IV Q8H AKIKO; Protocol Stop: 02/16/19 05:59 Last Admin: 02/02/19 13:28 Dose: 5 mls/min Documented by: Levocetirizine (Levocetirizine Dihydrochloride) 1 ea PO DAILY AKIKO Stop: 03/04/19 08:59 Last Admin: 02/02/19 07:27 Dose: 1 ea Documented by: Miscellaneous Information (Cefepime Consult Active) 1 ea N/A UD PRN PRN Reason: Consult Stop: 03/04/19 01:51 Montelukast Sodium (Singulair) 10 mg PO HS AKIKO Stop: 03/03/19 23:45 Last Admin: 02/01/19 23:59 Dose: Not Given Documented by: Sodium Chloride (Casey Nasal) 2 sprays NA TID AKIKO Stop: 03/03/19 23:45 Last Admin: 02/02/19 13:28 Dose: 2 sprays Documented by: Tramadol HCl (Ultram) 25 mg PO Q4H PRN PRN Reason: Pain Stop: 03/03/19 23:45 (1) Sinusitis Chronicity: unspecified Sinusitis location: unspecified location Qualified Code(s): J32.9 - Chronic sinusitis, unspecified (2) UTI (urinary tract infection) Hematuria presence: without hematuria Urinary tract infection type: site unspecified Qualified Code(s): N39.0 - Urinary tract infection, site not specified
[2019-02-02] MEDS ORDERED: ZOLPIDEM TARTRATE 5 MG TAB PO PRN (18:59)
[2019-02-02] MEDS: FLUTICASONE PROPIONATE NA SPR 16 GM BTL SCH (20:36)
[2019-02-02] MEDS: MONTELUKAST SODIUM 10 MG TABLET PO SCH (20:37)
[2019-02-03] MEDS: CEFEPIME 2,000 MG in SYRINGE 7.5 ML IV SCH (05:26)
[2019-02-03] MEDS: FLUTICASONE/VILANTEROL INHALER INH SCH (08:18)
[2019-02-03] MEDS: ATORVASTATIN 20 MG TAB PO SCH (08:19)
[2019-02-03] MEDS: SODIUM CHLORIDE 0.65% NA SOLN 45 ML (OCEAN) SCH (08:19)
[2019-02-03] MEDS: LEVOCETIRIZINE DIHYDROCHLORIDE PO SCH (08:19)
[2019-02-03] MEDS: ENOXAPARIN INJ 40 MG/0.4 ML SYR SQ SCH (08:20)
[2019-02-03] MEDS ORDERED: ERTAPENEM SODIUM 1,000 MG in SODIUM CHLORIDE 0.9% 50 ML IV SCH (09:00)
--- NOTE | 2019-02-03 12:25 | Discharge Summary ---
Date of Service February 03, 2019 Admission HPI Per Admitting Provider History obtained from patient, family, and records. Medical history significant for asthma, allergic rhinitis, osteoarthritis, history diverticulosis as per records, Urinary incontinence as per records, prediabetes as per records. Recent confinement June 2017 under orthopedics service for elective left knee surgery. Last month, patient noted left-sided abdominal pain. Patient prescribed Cipro Flagyl for presumptive diverticulitis. Outpatient CT abdomen pelvis showed acute epiploic appendagitis of the proximal descending colon. Cipro Flagyl later switch to Augmentin course due to patient intolerance for former medications. Abdominal discomfort resolved. 2 days history of stuffy nasal congestion, cough symptoms productive of clear sputum, severe achy headache with nausea and some vomiting. Fever, chills at home. Some bladder discomfort, patient requesting for cranberry juice. No chest pain, no S OB, no abdominal pain. This morning, patient brought to ER for evaluation. Prescribed Augmentin for sinusitis. Patient also given Decadron at the ER. Blood cultures 2 bottles noted to grow gram-negative rods. Patient requested to return to the emergency room. Patient given IV Cefepime, Levaquin at the ER. 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 Admission Exam Per Admitting Provider GENERAL: Comfortable, obese, pleasant, no respiratory distress SKIN: Normal color, warm HEENT: [place] palpebral conjunctivae, no ptosis, dry buccal mucosa NECK : Supple, short neck, no tenderness CHEST : CTA, no tenderness HEART : RRR, no obvious murmurs ABDOMEN: Some distention, nontender EXTREMITIES : No LE swelling/tenderness, no other conspicuous deformities noted NEUROLOGIC : Coherent, no facial asymmetry, no other gross focality Principal Diagnosis sepsis ESBL E coli bacteremia ESBL E coli UTI Discharge Exam CONSTITUTIONAL: WNWD, vitals as above, generally well-appearing EYES: normal conjunctivae, no scleral icterus ENT: MMM RESPIRATORY: clear to auscultation bilaterally, no crackles, rales or wheezes, normal respiratory effort CARDIOVASCULAR: regular rate and rhythm, S1 and 2 heard without murmurs, gallops or rubs, no JVD, no peripheral edema GASTROINTESTINAL: normal bowel sounds, soft, nontender, nondistended MUSCULOSKELETAL: strength 5/5 throughout, head is normocephalic and atraumatic SKIN: warm and dry NEUROLOGIC: CN 2-12 grossly intact, no sensory deficit, normal cognition, normal speech, no gross neurologic deficits PSYCHIATRIC: alert cooperative and oriented to person, place and time. Discharge Data Allergies Allergy/AdvReac Type Severity Reaction Status Date / Time codeine Allergy Mild NAUSEA Unverified 02/01/19 08:40 aspartame Allergy Unknown SWELLING Unverified 02/01/19 08:40 HIVES guaifenesin Allergy Unknown SWELLING Unverified 02/01/19 08:40 HIVES morphine Allergy Unknown VOMITING Unverified 02/01/19 08:40 Quinolones AdvReac Intermediate Vomiting Unverified 02/01/19 19:31 tramadol AdvReac Mild ULTRACET-VO Verified 02/01/19 08:40 MITING lactose AdvReac Unknown INTOLERANCE, Verified 02/01/19 08:40 DAIRY PRODUCTS oxycodone AdvReac Unknown n/v Verified 02/01/19 08:40 Consultations 02/01/19 22:03 ED Decision to Admit Stat 02/02/19 10:38 Consult Infectious Diseases Routine Ordered Studies 02/01/19 19:58 CT abd pelvis IV con only Stat CT chest w con Stat Hospital Course (1) Gram negative sepsis: (2) Sinusitis: (3) UTI (urinary tract infection): 68-year-old female admitted for gram-negative septicemia. She has been having abdominal pain for approximately 6 months and was prescribed Cipro and Flagyl for presumptive diverticulitis as outpatient. An outpatient CT of the abdomen pelvis revealed acute epiploic appendagitis of the proximal descending colon. Cipro and Flagyl were later switched to Augmentin due to patient intolerance. Her abdominal discomfort completely resolved. However, 2 days prior to arrival she developed fevers, chills, malaise, sinus congestion with cough that was nonproductive, headache, nausea, vomiting and bladder discomfort. On January 15 she returned from the [facility]. She does not remember being bitten by anything while there was not ill on her trip. She came to the ER on 02/01 and was thought to have a viral syndrome. Flu PCR was negative at that time. Chest x-ray and head CT were clear with the exception of acute pansinusitis seen. Augmentin was given for this and after supportive care she was sent home. Her headache was treated with Decadron. Blood cultures grew gram-negative rods and she was called back to the ER and subsequently admitted. ID was consulted and agrees with cefepime treatment for now pending cultures. The patient looks clinically well today she is tolerating regular food, she is energetic, she is mentating at baseline and free of symptoms. She was started on cefepime empirically and her outpatient Augmentin was discontinued eyes her symptoms were more consistent with a viral URI as opposed to sinusitis. She continued to improve clinically all around. Blood and urine cultures revealed an ESBL E. coli. Infectious disease recommended a switch of cefepime to a 14- day course of Omnicef. At time of discharge she was mentating and ambulating at baseline and tolerating p.o. She was hemodynamically stable and afebrile and had remained clinically stable for the last 48 hours. She was discharged in stable condition with close primary care follow-up recommended. Total Time Total Time Spent Total Time Spent (In Minutes): 60 Total Time Includes: Examination of the Patient, Discharge Planning, Medication Reconciliation and Communication With Other Providers Discharge Plan Discharge Items Patient Disposition: Home - Self-Care Reason For Visit: SEPSIS,BACTEREMIA Discharge Diagnosis: sepsis ESBL E coli bacteremia ESBL E coli UTI Activity: Resume your previous activity Non-emergency contact: Primary Care Provider Call non-emergency contact if: you have any medication questions, your symptoms worsen, your pain is not controlled, your pain is worsening, your pain is unusual for you, your pain is concerning for you and you have a fever Follow-up/Referrals: Sinan Russo MD [Primary Care Provider] - Diet: Regular Addtl Attending Provider Instructions: Please complete the full antibiotic course as prescribed. It is recommended to follow-up with Dr. Russo within one week of discharge to ensure you are doing well post-discharge. Someone from our team will contact you after the weekend to schedule this with you. It was a pleasure taking care of you! Please call if you have any questions or problems. You can reach a [facility] hospitalist on duty at [facility] 24 hours a day by calling [phone]. Take care of yourself. Yanet Sales, DO [place] [facility] Hospitalist Pending Studies at Discharge: Yes Studies:: Final blood cultures pending at discharge, but preliminary result is negative. Stand-Alone Forms: My [facility] [employer] IP, Smoking Cessation Medications and DC Order Prescriptions: New Saccharomyces boulardii 250 mg capsule 250 mg PO BID Qty: 60 RF: 0 cefdinir 300 mg capsule 300 mg PO BID 14 Days Qty: 28 RF: 0 Continued montelukast 10 mg tablet 10 mg PO HS RF: 0 furosemide 20 mg tablet 20 mg PO QAM RF: 0 albuterol sulfate [Ventolin HFA] 90 mcg/actuation Hfa Aerosol Inhaler 2 puff INHALATION Q4H PRN (Reason: Shortness Of Breath Or Wheezing) RF: 0 oxybutynin chloride 5 mg tablet 5 mg PO BID PRN (Reason: Bladder Spasms) RF: 0 hydrocortisone-iodoquinol [Dermazene] 1-1 % Cream 1 applic TOPICAL TID PRN (Reason: Skin Irritation) RF: 0 fluticasone propionate [Flonase Allergy Relief] 50 mcg/actuation [place],Suspension 2 spray INTRANASAL HS RF: 0 mometasone [Elocon] 0.1 % Cream 1 applic TOPICAL DAILY PRN (Reason: Skin Irritation) RF: 0 B Complex 1.7-20-2-1.2 mg/mL Liquid 1 tab Sublingual QAM RF: 0 levocetirizine 5 mg tablet 5 mg PO QAM RF: 0 meclizine 25 mg Tablet 0 mg PO DAILY PRN (Reason: Vertigo) RF: 0 cholecalciferol (vitamin D3) [Vitamin D3] 1,000 unit Capsule 0 unit PO QAM RF: 0 psyllium husk [Fiber (psyllium husk)] 0.52 gram Capsule 0 g PO QAM RF: 0 prednisone 10 mg tablet 10 mg PO DIRECTED PRN (Reason: ASTHMA) RF: 0 atorvastatin 20 mg tablet 20 mg PO DAILY RF: 0 Breo Ellipta 200-25 mcg/dose blister with device 1 inh inhalation DAILY RF: 0 acetaminophen [Tylenol Arthritis Pain] 650 mg Tablet Extended Release 650 mg PO Q12H PRN (Reason: Fever Or Pain) RF: 0 ibuprofen 200 mg Tablet 200 mg PO Q6H PRN (Reason: Fever Or Pain) RF: 0 Discontinued Align 4 mg Capsule 0 mg PO QAM RF: 0 amoxicillin-pot clavulanate [Augmentin] 875-125 mg tablet 1 tab PO BID Qty: 20 RF: 0 Discharge Orders: Discharge Order (Routine); Ordered 02/03/19 Ordered By: Yanet Sales Admission Data Admit Date/Time: 02/01/19 23:05 Attending Provider: Yanet Sales Admit Provider: Natanael Cardenas Primary Care Provider: Sinan Russo Other Providers: Natanael Cardenas ; Rodrick Haas ; Darren,Octavianox Other Interventions: Discharge Summary Assessment (RN) Last Done: 02/03/19 12:56 DC Date/Time DO NOT enter until pt leaves facility: 02/03/19 13:34
== END 2019-02-03 13:34 | disposition home or self-care (01) | DRG 872 ==
LOC: ED 19:50 → 4W 23:05